=== PATIENT | female | born 1945 | race Caucasian/White ===

== ENCOUNTER 2016-07-31 06:34 | Day surgery (SDC) | payer OTHER, MEDICARE ==
[2016-07-30 15:13] VITALS: BMI 34.4
[2016-07-31] MEDS ORDERED: PROPOFOL 20 ML ONE ×2 (07:57)
[2016-07-31] MEDS ORDERED: LIDOCAINE HCL/PF 2% SDV 5ML VIAL ONE (07:57)
[2016-07-31] MEDS ORDERED: SUCCINYLCHOLINE CHLORIDE 200 MG/10 ML VIAL ONE (07:57)
[2016-07-31 08:39] VITALS: TEMP 98
[2016-07-31 09:24] VITALS: BP 134/52; PULSE 72
--- NOTE | 2016-08-01 10:44 | PATH ---
Surgical Pathology Report Patient Name: JAYA LOCK [facility]. Rec. #: [id number] /Age/Gender: 1945 (Age: 71) / F Account: [id number] Location: ASU-ENDOSCOPY Taken: 07/31/2016 Received: 07/31/2016 Reported: 08/01/2016 Physicians: Jay Jay Armendariz M.D. Specimen(s) Received BX RECTAL POLYP Clinical History History of colon polyp Polyp, diverticulosis Final Diagnosis RECTUM, POLYP, BIOPSY: HYPERPLASTIC POLYP WITH SERRATED ARCHITECTURE. Electronically Signed Rick Roach M.D. Gross Description Received in formalin, labeled "biopsy rectal polyp" is a mendez, irregular portion of soft tissue measuring 0.2 cm in greatest dimension. The specimen is submitted in toto in one cassette. 07/31/201607/31/2016
== END 2016-07-31 09:23 | disposition home or self-care (01) ==
LOC: JASU-ENDO 06:34
PROVIDERS: ATTEND Internal Medicine Gastroenterology
PROC: 0DBP8ZX Excision of Rectum, Via Natural or Artificial Opening Endoscopic, Diagnostic (ICD-10-PCS; principal; 2016-07-31 08:00)
DX: Z12.11 Encounter for screening for malignant neoplasm of colon (principal); Z86.010 Personal history of colon polyps; K62.1 Rectal polyp; K57.30 Diverticulosis of large intestine without perforation or abscess without bleeding
CPT/HCPCS: 88305-TC

== ENCOUNTER 2017-07-04 12:40 | Emergency (ER) | payer OTHER, MEDICARE ==
[2017-07-04 13:02] VITALS: BP 154/64; PULSE 77; TEMP 98; BMI 34.0
[2017-07-04] MEDS ORDERED: IBUPROFEN 600 MG TABLET (FP) PO ONE ×2 (13:13→13:15)
--- NOTE | 2017-07-04 13:14 | PDOC ---
History of Present Illness - General Chief Complaint: Injury Stated Complaint: FALL/ RT ARM PAIN Time Seen by Provider: 07/04/17 12:59 History Source: Patient Exam Limitations: No Limitations - History of Present Illness Initial Comments: 07/04/17 13:18 This is a 72-year-old woman with history of diabetes hands hyperlipidemia presents emergency Department with right shoulder pain status post fall on outstretched hand at approximately 1145 this morning. Patient states she was walking along the sidewalk when there was some uneven concrete which she tripped on and fell forward extending only her right arm and landing on the outstretched hand. Patient reports continued pain in the right shoulder as well as weakness to the right hand. Past History - Past Medical History Allergies/Adverse Reactions: Allergies Allergy/AdvReac Type Severity Reaction Status Date / Time No Known Allergies Allergy Verified 07/04/17 12:53 Home Medications: Ambulatory Orders Calcium Carbonate/Vitamin D3 [Caltrate 600 + D Chewable Tab] 1 each PO DAILY 02/21 Cholecalciferol (Vitamin D3) [Vitamin D3] 1,000 unit PO DAILY 07/12/11 Enalapril Maleate [Vasotec -] 20 mg PO DAILY 07/12/11 Hydrochlorothiazide [Hctz] 12.5 mg PO DAILY 07/12/11 Acitretin [Soriatane] 22.5 mg PO HS 10/05/12 Aspirin [ASA -] 81 mg PO HS 10/05/12 Fenofibrate Nanocrystallized [Tricor] 160 mg PO HS 10/05/12 Lactobacillus Rhamnosus GG [Culturelle] 1 each PO BID 10/05/12 Timolol 0.5% [Timoptic 0.5%] 1 drop OD BID 10/05/12 Glipizide [Glipizide ER] 2.5 mg PO DAILY 07/30/16 Loratadine [Claritin] 10 mg PO DAILY 07/30/16 [place]-3 Fatty Acids [Fish Oil] 300 mg PO DAILY 07/30/16 Ranitidine [Zantac -] 150 mg PO BID 07/30/16 Sitagliptin Phos/Metformin HCl [Janumet 50-1,000 mg Tablet] 1 tab PO BID Vitamin E 400 unit PO DAILY 07/30/16 Atorvastatin Ca [Lipitor] 10 mg PO HS 07/31/16 Oxycodone HCl/Acetaminophen [Percocet 5-325 mg Tablet] 1 tab PO Q6H PRN #20 tablet MDD 4 07/04/17 Anemia: No Asthma: No Cancer: No Cardiac Disorders: No CVA: No COPD: No CHF: No Dementia: No Diabetes: Yes (NIDDM) GI Disorders: Yes (GERD, HIATAL HERNIA, COLON POLYP, DIVERTICULOSIS) Disorders: No HTN: Yes Hypercholesterolemia: Yes Liver Disease: Yes (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) Seizures: No Thyroid Disease: No - Surgical History Abdominal Surgery: Yes (UMBILICAL HERNIA 2X) Appendectomy: Yes Cardiac Surgery: No Cholecystectomy: Yes (LAP) Lung Surgery: No Neurologic Surgery: No Orthopedic Surgery: Yes (LEFT KNEE SURGERY) - Suicide/Smoking/Psychosocial Hx Smoking History: Former smoker Have you smoked in the past 12 months: No If you are a former smoker, when did you quit?: 20 YRS Information on smoking cessation initiated: No Hx Alcohol Use: No Drug/Substance Use Hx: No Substance Use Type: None Hx Substance Use Treatment: No Review of Systems - Review of Systems Able to Perform ROS?: Yes Is the patient limited Tongan proficient: No Constitutional: No: Symptoms Reported HEENTM: No: Symptoms Reported Respiratory: No: Symptoms reported Cardiac (ROS): No: Symptoms Reported ABD/GI: No: Symptoms Reported : No: Symptoms Reported Musculoskeletal: Yes: See HPI Integumentary: No: Symptoms Reported Neurological: No: Symptoms reported Endocrine: No: Symptoms Reported *Physical Exam - Vital Signs Last Vital Signs Temp Pulse Resp BP Pulse Ox 98 F 77 16 154/64 100 07/04/17 12:54 07/04/17 12:54 07/04/17 12:54 07/04/17 12:54 07/04/17 12:54 - Physical Exam General Appearance: Yes: Appropriately Dressed. No: Apparent Distress Neck: positive: Trachea midline, Supple Respiratory/Chest: positive: Lungs Clear, Normal Breath Sounds. negative: Respiratory Distress, Accessory Muscle Use Cardiovascular: positive: Regular Rhythm, Regular Rate. negative: Murmur Gastrointestinal/Abdominal: positive: Normal Bowel Sounds, Soft. negative: Tender Musculoskeletal: positive: Other Extremity: positive: Normal Capillary Refill, Swelling (anterior right shoulder) Integumentary: positive: Normal Color, Dry, Warm Neurologic: positive: Alert, Normal Response ED Treatment Course - RADIOLOGY Radiology Studies Ordered: Category Date Time Status SHOULDER-RIGHT [RAD] Stat Radiology 07/04/17 13:13 Ordered Medical Decision Making - Medical Decision Making 07/04/17 13:22 A/P: 72-year-old woman with history of diabetes hands hyperlipidemia with right shoulder pain status post fall on outstretched hand Swelling and tenderness noted to the anterior right shoulder. Patient tender to the medial humerus 2+ radial and ulnar pulses No pain to palpation of the elbow or wrist 4/5 strength in the right Motrin, x-ray, reassess 07/04/17 13:47 X-rays read by Dr. Moeller: Imaging reveals a comminuted fracture of the right humeral head and neck. There is a slight widening of the joint space most likely due to blood. Correlation recommended. 07/04/17 14:[address] Khushbu Lo's PA, who recommends sling, ice, pain management and follow-up with Dr. Ríos on Friday. Results discussed with patient verbalizes understanding. *DC/Admit/Observation/Transfer Diagnosis at time of Disposition: Comminuted right humeral fracture Qualifiers: Encounter type: initial encounter Fracture type: closed - Discharge Dispostion Disposition: HOME Condition at time of disposition: Stable - Prescriptions Prescriptions: Oxycodone HCl/Acetaminophen [Percocet 5-325 mg Tablet] 1 tab PO Q6H PRN #20 tablet MDD 4 PRN Reason: Severe Pain - Referrals Referrals: Luis Antonio Chavez MD [Primary Care Provider] - Mykel Ríos MD [Staff Physician] - - Patient Instructions Printed Discharge Instructions: How to Use a Sling Additional Instructions: Wear sling 24 hours a day to help relieve pain. Apply ice for 20 minutes at a time and will for a minimum of 20 mass before reapplying. Take Motrin as directed by hair spring winder's instructions for relief of minor pain. Pain is unrelieved by Motrin take Percocet one tablet every 6 hours as needed for pain relief. Make an appointment with Dr. Johnson for evaluation on Friday. Return to emergency department for any numbness or tingling of the fingers, discoloration of her hands, severe pain not controlled by medications, or any other concerns. - Post Discharge Activity
== END 2017-07-04 14:12 | disposition home or self-care (01) ==
LOC: JERFT 12:40
DX: S42.354A Nondisplaced comminuted fracture of shaft of humerus, right arm, initial encounter for closed fracture (principal); W18.39XA Other fall on same level, initial encounter; Y93.89 Activity, other specified; Y92.410 Unspecified street and highway as the place of occurrence of the external cause; E78.5 Hyperlipidemia, unspecified; E11.9 Type 2 diabetes mellitus without complications; I10 Essential (primary) hypertension; K21.9 Gastro-esophageal reflux disease without esophagitis; Z87.891 Personal history of nicotine dependence
CPT/HCPCS: 73030-TC-RT-FY; 99281-25

== ENCOUNTER 2017-07-14 12:17 | Day surgery (SDC) | payer OTHER, MEDICARE ==
[2017-07-11 13:54] VITALS: BMI 34.1
[~2017-07-14 12:17] MED LIST: ceFAZolin SODIUM 1 GM VIAL IVPB ONE
[2017-07-14] MEDS ORDERED: DEXAMETHASONE SOD PHOSPHATE/PF 10 MG/ML SDV ONE (13:41)
[2017-07-14] MEDS ORDERED: ROPIVACAINE HCL 0.5% 30ML VIAL ONE (13:42)
[2017-07-14] MEDS ORDERED: MIDAZOLAM HCL 2 MG/2 ML SINGLE DOSE VIAL ONE ×2 (13:51)
[2017-07-14] MEDS ORDERED: ceFAZolin SODIUM 1 GM VIAL ONE ×2 (14:16→15:02)
[2017-07-14] MEDS ORDERED: ROCURONIUM BROMIDE 50 MG/5 ML VIAL ONE (14:35)
[2017-07-14] MEDS ORDERED: PROPOFOL 20 ML ONE (14:35)
[2017-07-14] MEDS ORDERED: LACTATED RINGERS SOLUTION 1,000 ML IV SCH (14:45)
[2017-07-14] MEDS ORDERED: ONDANSETRON 4 MG/2 ML VIAL IVPUSH PRN (14:45)
[2017-07-14] MEDS ORDERED: ceFAZolin SODIUM 1 GM VIAL IVPB ONE ×2 (15:05→15:27)
[2017-07-14] MEDS ORDERED: DEXAMETHASONE SOD PHOSPHATE 4 MG/1 ML VIAL ONE (15:11)
[2017-07-14] MEDS ORDERED: NEOSTIGMINE METHYLSULFATE 0.5 MG/ML - 10 ML MDV ONE (16:09)
[2017-07-14] MEDS ORDERED: GLYCOPYRROLATE 0.2 MG/1 ML VIAL ONE (16:09)
--- NOTE | 2017-07-14 16:31 | HP ---
Satellite H - Chief Complaint Chief Complaint: right shoulder pain/fx - Past Medical History Allergies/Adverse Reactions: Allergies Allergy/AdvReac Type Severity Reaction Status Date / Time No Known Allergies Allergy Verified 07/11/17 13:52 - Current Medications Current Medications: Home Medications Medication Instructions Recorded Cholecalciferol (Vitamin D3) 1,000 unit PO DAILY 07/12/11 [Vitamin D3] Enalapril Maleate [Vasotec -] 20 mg PO DAILY 07/12/11 Acitretin [Soriatane] 22.5 mg PO HS 10/05/12 Aspirin [ASA -] 81 mg PO HS 10/05/12 Fenofibrate Nanocrystallized 160 mg PO HS 10/05/12 [Tricor] Timolol 0.5% [Timoptic 0.5%] 1 drop OD BID 10/05/12 Glipizide [Glipizide ER] 5 mg PO DAILY 07/30/16 [place]-3 Fatty Acids [Fish Oil] 300 mg PO DAILY 07/30/16 Ranitidine [Zantac -] 150 mg PO BID 07/30/16 Sitagliptin Phos/Metformin HCl 1 tab PO BID 07/30/16 [Janumet 50-1,000 mg Tablet] Vitamin E 400 unit PO DAILY 07/30/16 Atorvastatin Ca [Lipitor] 10 mg PO HS 07/31/16 Hydrochlorothiazide 25 mg PO DAILY 07/14/17 Oxycodone HCl/Acetaminophen 1 - 2 tab PO Q6H #50 tab MDD 8 07/14/17 [Percocet 5-325 mg Tablet -] Satellite Physical Exam - Physical Examination Vital Signs: Vital Signs Period Temp Pulse Resp BP Sys/Buck Pulse Ox Last 24 Hr 98.7 F 93 20 141/82 98 General Appearance: Well Nourished, Well Developed, Alert & Oriented x3 ENT: Clear Lung: Normal air movement Heart: Regular rate & rhythm Extremities: Other (right shoulder- + swelling, + ecchymosis, + ttp, decr ed, nvi xrays show displaced proximal humerus fx) Neurological: Intact, Alert, Oriented Satellite Impression/Plan - Impression/Plan Impression: right displaced proximal humerus Operative Procedure: right shoulder hemiarthroplasty Date to be Performed: 07/14/17
--- NOTE | 2017-07-14 16:32 | OP ---
Operative Note - Note: Operative Date: 07/14/17 ([facility]) Pre-Operative Diagnosis: right proximal humerus fx Operation: right shoulder tad Post-Operative Diagnosis: Same as Pre-op Surgeon: Mykel Ríos [place] Caller: Wally Jessica Anesthesiologist/ENAMEL FINISHER: Lucio Ward Anesthesia: General, Local Specimens Removed: humeral head Estimated Blood Loss (mls): 200 Operative Report Dictated: Yes
[2017-07-14] MEDS: metFORMIN HCL 500 MG TABLET (FP) PO SCH (21:18)
[2017-07-14] MEDS: RANITIDINE HCL 150 MG TABLET (FP) PO SCH (21:18)
[2017-07-14] MEDS: INSULIN SLIDING SCALE (NOVOLOG) 1 VIAL SQ SCH (21:26)
--- NOTE | 2017-07-14 21:42 | OP ---
DATE OF OPERATION: 07/14/2017 PREOPERATIVE DIAGNOSIS: Four-part right proximal humerus fracture. POSTOPERATIVE DIAGNOSIS: Four-part right proximal humerus fracture. PROCEDURE: Right shoulder hemiarthroplasty. SURGICAL ATTENDING: Mykel Ríos MD ELECTROMECHANICAL INSPECTOR: ABELINO Talbert ANESTHESIA: Regional and general. CLOSURE: A [place] fracture proximal humeral replacement hemiarthroplasty system with a 9 body, a, I believer, 46-mm head, and a FiberTape suture for tuberosities, 0 Vicryl for fascia, 2-0 subcutaneous, and 3-0 Monocryl subcuticular with skin glue for skin. ESTIMATED BLOOD LOSS: Approximately 100 mL. COMPLICATIONS: None. CONDITION: Recovery room in stable condition. DESCRIPTION OF OPERATIVE PROCEDURE: Patient taken to the operating room on July 14, 2017. Regional and general anesthesia was administered by the anesthesiologist. IV Kefzol was administered prophylactically prior to the case. Patient was placed in the beach chair position with all prominences well padded. Right shoulder area was prepped and draped in the usual sterile fashion. A curved longitudinal incision from the AC joint along the coracoid, curving towards the deltoid insertion was incised. Hemostasis achieved with Bovie cautery. Sharp dissection was carried down to the level of the fascia with suspension flaps circumferentially to perform the procedure. The deltopectoral interval was identified and was developed. The vein was identified, and it was retracted medially. Any perforators were cauterized. Retractors were placed here, exposing the fracture. The humeral head was freed up and was delivered out of the wound. It was measured for thickness and for size. Multiple traction stitches were placed both in the subscapularis and in the supraspinatus/infraspinatus regions. The tuberosity bone was smoothened out. The cancellous bone was saved for latera bone grafting. The proximal femur was broached until a 9 achieved good fit. Drill holes were placed in the shaft and passage of SutureTape sutures for later tuberosity closure. The stem was placed with it left proud 3 levels and was then tightened intramedullary in order to ascertain height. The trial head was applied. Shoulder was reduced. The tuberosities were then pulled around and found to fit appropriately beneath the articular surface and had good stability and good clearance on the subacromial space. The real prostheses were then cemented in using antibiotic cement with 30 degrees of retroversion placed in the stem. When the cement was hardened, all excess cement was removed. The shoulder was reduced. The tuberosities were then pulled around the prosthesis. Sutures were passed through each tuberosity and through the holes in the prosthesis to reduce the tuberosities to the prosthesis. Also, sutures were passed from one tuberosity to the other. Also, sutures were passed and tied from the shaft up to both the anterior and posterior tuberosities; so, we have a construct of shaft tuberosities, tuberosities to tuberosities, and tuberosities to the components. The region underneath the component was filled with the bone graft fragments. Shoulder was taken through a range of motion, found to have good stability and good clearance and good height. Shoulder was irrigated with copious amounts of irrigation. The deltopectoral interval was closed with 0 Vicryl running suture, a 2-0 for subcutaneous, 3-0 Monocryl subcuticular with skin glue for skin. A shoulder immobilizer was applied. Patient awakened from anesthesia and transferred to Recovery in stable condition. No complications. Estimated blood loss: Approximately 100 mL. Luis DEMARCO/[id number]
[2017-07-14] MEDS ORDERED: ATORVASTATIN CA 10 MG TABLET (FP) PO SCH (22:00)
[2017-07-14] MEDS ORDERED: FENOFIBRIC ACID 135 MG CAP PO SCH (22:00)
[2017-07-14] MEDS ORDERED: ASPIRIN 81 MG CHEWABLE TABLETS PO SCH (22:00)
[2017-07-14] MEDS ORDERED: PATIENT'S OWN MEDICATION (NON-FORMULARY) (Sitagliptin Phos/Metformin Hcl [Janumet 50-1,000 PO SCH (22:00)
[2017-07-14] MEDS: TIMOLOL 0.5% OPHTHALMIC SOL 5 ML BOTTLE OD SCH (22:37)
[2017-07-14] MEDS: sitaGLIPtin PHOSPHATE 50 MG TABLET PO SCH (22:38)
[2017-07-15] MEDS ORDERED: PT OWN MED DRAWER 7, Y5N ONE ×2 (04:42→09:25)
[2017-07-15] MEDS: metFORMIN HCL 500 MG TABLET (FP) PO SCH (06:14)
[2017-07-15] MEDS: sitaGLIPtin PHOSPHATE 50 MG TABLET PO SCH (06:14)
[2017-07-15] MEDS: INSULIN SLIDING SCALE (NOVOLOG) 1 VIAL SQ SCH (06:15)
[2017-07-15] MEDS ORDERED: glipiZIDE-XL 5 MG TAB.ER.24 PO SCH (07:00)
[2017-07-15 08:51] VITALS: BP 149/64; PULSE 83; TEMP 98.5
[2017-07-15] MEDS: TIMOLOL 0.5% OPHTHALMIC SOL 5 ML BOTTLE OD SCH (09:37)
[2017-07-15] MEDS: RANITIDINE HCL 150 MG TABLET (FP) PO SCH (09:38)
[2017-07-15] MEDS ORDERED: ENALAPRIL MALEATE 10 MG TABLET (FP) PO SCH (10:00)
[2017-07-15] MEDS ORDERED: HYDROCHLOROTHIAZIDE 25 MG TABLET (FP) PO SCH (10:00)
--- NOTE | 2017-07-16 17:09 | PATH ---
Surgical Pathology Report Patient Name: JAYA LOCK [facility]. Rec. #: [id number] /Age/Gender: 1945 (Age: 72) / F Account: [id number] Location: AMBULATORY SURG Taken: 07/14/2017 Received: 07/15/2017 Reported: 07/16/2017 Physicians: Mykel Ríos M.D. Specimen(s) Received RIGHT HUMERAL HEAD Clinical History Fracture right shoulder Final Diagnosis BONE, HUMERAL HEAD, RIGHT, HEMIARTHROPLASTY: BONE WITH INTERSTITIAL HEMORRHAGE CONSISTENT WITH FRACTURE. Electronically Signed Deyanira Sexton M.D. Gross Description Received in formalin labeled "right humeral head," is a 4.3 x 3.8 x 1.5 cm focally hemorrhagic portion of bone, consistent with a humeral head. The articular surface is mendez-yellow and focally granular. No areas of eburnation are identified. The underlying trabecular bone is yellow, hard and focally hemorrhagic. Sales Program Coordinator sections are submitted in one cassette, following decalcification. 07/15/2017 [facility]07/15/2017
== END 2017-07-15 11:07 | disposition home or self-care (01) ==
LOC: JASUSAT 12:17 → JASU-SURG 12:17 → J6S 18:40 → JASUSAT 07-15 11:07
PROVIDERS: ATTEND Orthopaedic Surgery
PROC: 0RRJ0J6 Replacement of Right Shoulder Joint with Synthetic Substitute, Humeral Surface, Open Approach (ICD-10-PCS; principal; 2017-07-14 14:30)
DX: S42.291A Other displaced fracture of upper end of right humerus, initial encounter for closed fracture (principal); X58.XXXA Exposure to other specified factors, initial encounter; Y93.9 Activity, unspecified; Y92.9 Unspecified place or not applicable
CPT/HCPCS: 36415; 73030-TC-RT-FY; 82947; 82962; 88307-TC; 88311-TC; 94760; 97116-GP; 97161-GP

== ENCOUNTER 2018-10-11 12:11 | Emergency (ER) | payer OTHER, MEDICARE | END 2018-10-11 14:54 | disposition home or self-care (01) | LOC: JER 12:11 ==

== ENCOUNTER 2018-10-14 05:27 | Inpatient (IN) | payer OTHER, MEDICARE ==
[2018-10-13 13:31] VITALS: BMI 34.0
[2018-10-14] MEDS ORDERED: ONDANSETRON 4 MG/2 ML VIAL IVPUSH PRN (08:40)
[2018-10-14] MEDS ORDERED: ROPIVACAINE HCL 0.5% 30ML VIAL ONE (10:41)
[2018-10-14] MEDS ORDERED: DEXAMETHASONE SOD PHOSPHATE/PF 10 MG/ML SDV ONE (10:41)
[2018-10-14] MEDS ORDERED: MIDAZOLAM HCL 2 MG/2 ML SINGLE DOSE VIAL ONE ×2 (10:42)
--- NOTE | 2018-10-14 11:01 | HP ---
Satellite [facility] - Chief Complaint Chief Complaint: left shoulder fx - Past Medical History Allergies/Adverse Reactions: Allergies Allergy/AdvReac Type Severity Reaction Status Date / Time No Known Drug Allergies Allergy Verified 10/14/18 10:03 ENVIRONMENTAL Allergy Mild Uncoded 10/14/18 10:03 - Current Medications Current Medications: Home Medications Medication Instructions Recorded Cholecalciferol (Vitamin D3) 1,000 unit PO DAILY 07/12/11 [Vitamin D3] Enalapril Maleate [Vasotec -] 20 mg PO DAILY 07/12/11 Aspirin [ASA -] 81 mg PO HS 10/05/12 Fenofibrate Nanocrystallized 160 mg PO HS 10/05/12 [Tricor] Timolol 0.5% [Timoptic 0.5%] 1 drop OD BID 10/05/12 Glipizide [Glipizide ER] 5 mg PO DAILY 07/30/16 [place]-3 Fatty Acids [Fish Oil] 300 mg PO DAILY 07/30/16 Ranitidine [Zantac -] 150 mg PO BID 07/30/16 Sitagliptin Phos/Metformin HCl 1 tab PO BID 07/30/16 [Janumet 50-1,000 mg Tablet] Vitamin E 400 unit PO DAILY 07/30/16 Hydrochlorothiazide 25 mg PO DAILY 07/14/17 Acetaminophen [Tylenol -] 1,000 mg PO Q6H #30 tablet 10/11/18 Atorvastatin Ca [Lipitor] 10 mg PO HS 10/14/18 Satellite Physical Exam - Physical Examination Vital Signs: Vital Signs Period Temp Pulse Resp BP Sys/Buck Pulse Ox Last 24 Hr 98.2 F 89 18 139/83 98 General Appearance: Well Nourished, Well Developed, Alert & Oriented x3 ENT: Clear Lung: Normal air movement Heart: Regular rate & rhythm Extremities: Other (left shoulder- + swelling, + ttp, decr rom , nvi, xrays show displaced 4 part proximal humerus fx) Neurological: Intact, Alert, Oriented Satellite Impression/Plan - Impression/Plan Impression: left displaced proximal humerus fx Operative Procedure: left reverse TSA Date to be Performed: 10/14/18
[2018-10-14] MEDS ORDERED: PROPOFOL 20 ML ONE (11:19)
[2018-10-14] MEDS ORDERED: ROCURONIUM BROMIDE 50 MG/5 ML SYRINGE ONE (11:19)
[2018-10-14] MEDS ORDERED: ceFAZolin SODIUM 1 GM VIAL IVPB ONE (11:25)
[2018-10-14] MEDS ORDERED: ceFAZolin SODIUM 1 GM VIAL ONE (11:35)
[2018-10-14] MEDS ORDERED: DESFLURANE GAS 240 ML BOTTLE IH ONE (13:59)
--- NOTE | 2018-10-14 14:39 | OP ---
Operative Note - Note: Operative Date: 10/14/18 ([facility]) Pre-Operative Diagnosis: left proximal humerus fx Operation: left reverse TSA, RCR Post-Operative Diagnosis: Same as Pre-op Surgeon: Mykel Ríos Dampener Operator: Uche Lipscomb) Anesthesiologist/AIRLINE PILOT/FIRST OFFICER: Rhonda Milan Anesthesia: General, Local Specimens Removed: humeral head Estimated Blood Loss (mls): 250 Operative Report Dictated: Yes
[2018-10-14] MEDS: INSULIN SLIDING SCALE (NOVOLOG) 1 VIAL SQ SCH ×2 (17:03→21:10)
[2018-10-14] MEDS: LACTATED RINGERS SOLUTION 1,000 ML IV SCH (17:04)
[2018-10-14] MEDS: CEFAZOLIN 2 GM/D5W 2 GM/50 ML ML IVPB SCH (18:08)
--- NOTE | 2018-10-14 19:09 | OP ---
DATE OF OPERATION: 10/14/2018 PREOPERATIVE DIAGNOSIS: Left four-part left proximal humerus fracture. POSTOPERATIVE DIAGNOSIS: Left four-part left proximal humerus fracture. PROCEDURE: Left reverse total shoulder replacement and open reduction, internal fixation of the greater lesser tuberosities and open rotator cuff repair. SURGEON: Rocky Knight M.D. DUMP MOTORMAN: Mykel Ríos M.D., Wally Jessica PRadha DRAINS: None. COMPLICATIONS: None. SPECIMEN: Cancellous bone. BLOOD LOSS: 150 mL. BLOOD GIVEN: None. FLUID REPLACEMENT: 1500 mL. INDICATION: This patient is a 73-year-old female with preoperative diagnosis of complete displaced 4-part left proximal humerus fracture. After understanding the potential risks, complications, alternatives, benefits to surgery versus nonsurgical treatment, the patient elected to undergo this procedure. DESCRIPTION OF PROCEDURE; The patient was brought to the operating room, peripheral IV placed, IV sedation, given, 2 g of IV Ancef was given. Left interscalene block was performed. LMA anesthesia was induced. She was placed in the beach chair position with ample padding throughout. The left upper extremity is prepped and draped in sterile fashion. The bony landmarks were marked out with marking pen. Deltopectoral approach, the incision was made with a number 15 scalpel blade. Subcutaneous hemostasis was achieved with a Bovie cautery. Dissection was done down to the deltoid. The raphe was found. The cephalic vein retracted in a medial direction. Additional blunt dissection done through the deltopectoral interval, down to the subscapularis and the anterior capsule on the left shoulder. The Jacob retractor was placed. Next an anterior straight longitudinal anterior capsulotomy was made with Bovie cautery. Hematoma was evacuated. Next, 6 Fiberwire sutures were placed: 3 into the greater, 3 into the lesser tuberosity for later rotator cuff repair and greater tuberosity/lesser tuberosity ORIF. Several small bony fragments were removed, fragments of the humeral head with articular cartilage were removed. This exposed the glenoid. The area was copiously irrigated and washed out. Some small bleeders cauterized. The top of the humerus was cleaned up. Next, we used the [employer] [place] reverse total shoulder replacement system to put in a glenoid/glenosphere in the standard fashion. First we cut out the soft labrum, then used the central guidewire in a bicortical fashion, measured, pretapped, and then put in a standard 28-mm glenosphere baseplate with the central screw holding it in place. Came together quite nicely. This was done after reaming, getting an inferior "smile" of exposed bleeding cancellous bone. Next, I put in 4 screws for additional baseplate fixation from 16 to 30 mm in length. It all came together quite nicely, and we got excellent fixation. baseplate, a 36-mm glenosphere was put on with a mallet in a Dodge taper fashion. I tried to pull it off; it was quite stable. I could not. Next, our attention turned to the humerus. We used the canal finder, sequential hand reamers up to a size 10, and then put in a trial 8 with the expandable distal aspect, expanded it keeping the top surface of the prosthesis 4 cm above the insertion of the pectoralis into the humerus. It seemed to come together quite nicely. I then trialed with a standard 4-mm baseplate with a 4-mm poly. It was quite stable in every plane. There was excellent range of motion. The shoulder was then dislocated. The trial prosthesis removed. I put in a plug of cancellous bone to the appropriate depth as a cement restricter, and put in 2 bags of Simplex cement with the pressurization gun and put in an actual [place] reverse total shoulder replacement fracture stem, 8 mm. It was held at the appropriate 4-cm position using the version safia at 30 degrees retroversion until the cement dried. Once the cement dried, the broach handle was removed, some excess cement removed with the small osteotome. The area was copiously irrigated and washed out. Overall it looked quite good. I put in a trial 4/4 humeral cup, reduced it, and it was quite stable in all planes, and therefore I put in the actual 4/4 mm poly and tapped it into place with a Dodge taper. I reduced it. It was quite stable in all planes. It all looked quite good. The area was copiously irrigated and washed out. I next used Fiberwire to sew the suture the greater to the lesser tuberosity and then brought it over the prosthesis and while doing the more inferior rotator cuff repair and then capsular repair, it completely covered the prosthesis and was quite stable in all planes. She would afford much more stability and function having done this repair. After the greater, lesser tuberosity ORIF and open rotator cuff repair and capsular repair, the area was irrigated and washed out. I reapproximated the deltoid with 0 Vicryl sutures, 2-0 Vicryl was used in the deep dermal layer and a final skin reapproximation was done with a running subcuticular 3-0 V-Loc suture. was then applied. The area was washed and dried, covered with Aquacel dressing. Total operative time was about 2.5 hours. Total blood loss was about 200 mL. She was put into a sling, extubated. She was stable throughout the case, and was brought to the regular recovery room in stable condition. The plan is for her to spend tonight in the hospital for observation and cardiovascular monitoring. We will repeat a hemoglobin and hematocrit as well. ROCKY KNIGHT M.D. [id number]
[2018-10-14] MEDS: oxyCODONE HCL 5 MG TABLET PO PRN (20:31)
[2018-10-14] MEDS: RANITIDINE HCL 150 MG TABLET (FP) PO SCH (21:10)
[2018-10-14] MEDS: TIMOLOL 0.5% OPHTHALMIC SOL 5 ML BOTTLE OD SCH (21:46)
[2018-10-14] MEDS ORDERED: ASPIRIN 81 MG CHEWABLE TABLETS PO SCH (22:00)
[2018-10-14] MEDS ORDERED: PATIENT'S OWN MEDICATION (NON-FORMULARY) (Sitagliptin Phos/Metformin Hcl [Janumet 50-1,000 PO SCH ×3 (22:00)
[2018-10-14] MEDS ORDERED: FENOFIBRIC ACID 135 MG CAP PO SCH ×2 (22:00)
[2018-10-14] MEDS ORDERED: ATORVASTATIN CA 10 MG TABLET (FP) PO SCH (22:00)
[2018-10-15] MEDS: oxyCODONE HCL 5 MG TABLET PO PRN (01:59)
[2018-10-15] MEDS: CEFAZOLIN 2 GM/D5W 2 GM/50 ML ML IVPB SCH (02:47)
[2018-10-15] MEDS: LACTATED RINGERS SOLUTION 1,000 ML IV SCH (05:50)
[2018-10-15 05:58] VITALS: BP 144/55; PULSE 80; TEMP 98.5
[2018-10-15] MEDS: INSULIN SLIDING SCALE (NOVOLOG) 1 VIAL SQ SCH (06:41)
[2018-10-15] MEDS ORDERED: INSULIN (NOVOLOG) ASPART 100 UNITS/ML 10ML VIAL ONE (06:48)
[2018-10-15] MEDS ORDERED: PT OWN MED DRAWER 7, Y5N ONE (06:49)
[2018-10-15] MEDS ORDERED: glipiZIDE-XL 5 MG TAB.ER.24 PO SCH (07:00)
--- NOTE | 2018-10-15 09:23 | PN ---
Progress Note (short form) - Note Progress Note: Ortho Pt seen and examined s/p left reverse TSA pod #1 Selected Entries 10/15/18 05:55 Temperature 98.5 F Pulse Rate 80 Respiratory 18 Rate Blood Pressure 144/55 L dressing c/d/i, good rom of elbow, wrist and hand nvi a/p PT pain control d/c home today f/u in 1 week
--- NOTE | 2018-10-15 09:24 | DS ---
Physical Examination Vital Signs: Vital Signs Temperature 98.5 F 10/15/18 05:55 Pulse Rate 80 10/15/18 05:55 Respiratory Rate 18 10/15/18 05:55 Blood Pressure 144/55 L 10/15/18 05:55 O2 Sat by Pulse Oximetry (%) 96 10/14/18 21:00 Discharge Summary Reason For Visit: OSTEOARTHRITIS LEFT SHOULDER Procedures: Principal: left reverse TSA Hospital Course: admitted for elective left reverse TSA, post-op course as per protocol, stable for d/c Condition: Good - Instructions Diet, Activity, Other Instructions: Post -op Instruction Sheet - Shoulder Surgery - Sling : You have been placed in a sling. As long as you are wearing this, your shoulder is well protected. You may come out of the sling to dress, or do exercises as directed. You may bend and straighten the elbow, and move your wrist and fingers. Please sleep with the sling on. You may find it more comfortable to sleep with a small pillow behind your elbow, or in a recliner. To wash your armpit, you may lean slightly forward and let your arm dangle slightly away from your side and wash with a washcloth. - Use an ice bag/pack on the shoulder for 15 minutes every 2 hours. - Pain medication was sent to your Pharmacy. - Keep your dressing clean and dry. Please call the office to make an appointment for 1 week after surgery. Your dressing will be removed at that time. - No Lifting. - Starting 1-2 days after surgery, you may take your arm out of the sling 3 times a day to bend and straighten your elbow and wrist to prevent stiffness. If only an arthroscopy was performed and NO repairs, you may move your shoulder as tolerated. If a rotator cuff/labral repair was performed, DO NOT move your shoulder until instructed by surgeon. - Please call the office at [phone] if there are any questions or concerns. Referrals: Mykel Ríos MD [Staff Physician] - - Home Medications Comprehensive Discharge Medication List: Ambulatory Orders Cholecalciferol (Vitamin D3) [Vitamin D3] 1,000 unit PO DAILY 07/12/11 Enalapril Maleate [Vasotec -] 20 mg PO DAILY 07/12/11 Aspirin [ASA -] 81 mg PO HS 10/05/12 Fenofibrate Nanocrystallized [Tricor] 160 mg PO HS 10/05/12 Timolol 0.5% [Timoptic 0.5%] 1 drop OD BID 10/05/12 Glipizide [Glipizide ER] 5 mg PO DAILY 07/30/16 [place]-3 Fatty Acids [Fish Oil] 300 mg PO DAILY 07/30/16 Ranitidine [Zantac -] 150 mg PO BID 07/30/16 Sitagliptin Phos/Metformin HCl [Janumet 50-1,000 mg Tablet] 1 tab PO BID Vitamin E 400 unit PO DAILY 07/30/16 Hydrochlorothiazide 25 mg PO DAILY 07/14/17 Acetaminophen [Tylenol -] 1,000 mg PO Q6H #30 tablet 10/11/18 Atorvastatin Ca [Lipitor] 10 mg PO HS 10/14/18
[2018-10-15] MEDS: RANITIDINE HCL 150 MG TABLET (FP) PO SCH (09:47)
[2018-10-15] MEDS: TIMOLOL 0.5% OPHTHALMIC SOL 5 ML BOTTLE OD SCH (09:54)
[2018-10-15] MEDS ORDERED: ENALAPRIL MALEATE 10 MG TABLET (FP) PO SCH (10:00)
[2018-10-15] MEDS ORDERED: HYDROCHLOROTHIAZIDE 25 MG TABLET (FP) PO SCH (10:00)
[2018-10-15] MEDS ORDERED: PATIENT'S OWN MEDICATION (NON-FORMULARY) (Sitagliptin Phos/Metformin Hcl [Janumet 50-1,000 PO SCH ×2 (11:00→11:45)
--- NOTE | 2018-10-16 18:11 | PATH ---
Surgical Pathology Report Patient Name: JAYA LOCK Med. Rec. #: [id number] /Age/Gender: 1945 (Age: 73) / F Account: <[id number]> Location: AMBULATORY SURG Taken: 10/14/2018 Received: 10/15/2018 Reported: 10/16/2018 Physicians: Luis Crabtree M.D. Specimen(s) Received LEFT HUMERAL HEAD Clinical History Osteoarthritis Final Diagnosis BONE, HUMERAL HEAD, LEFT, TOTAL REVERSE SHOULDER REPLACEMENT: BONE WITH DEGENERATIVE JOINT DISEASE AND REACTIVE CHANGES. Electronically Signed Deyanira Sexton M.D. Gross Description Received in formalin labeled "left humeral head" is a portion of humeral head measuring 4 x 4 x 0.2 cm. Margin of resection is irregular and focally hemorrhagic. Bone surface is predominantly smooth with focal granular areas. Underlying bone is yellow and hard. Computer Forwarding System Markup Clerk sections are submitted after decalcification in 1 cassette. MLAyeZ/10/15/2018 castro/10/15/2018
== END 2018-10-15 10:47 | disposition home or self-care (01) | DRG 483 ==
LOC: J6S 05:27 → JASUSAT 05:27 → JSAMEDAYSX 05:27 → UNDOADMIN 05:27 → EDSTATUS 10:00 → J6S 16:18 → JSAMEDAYSX 16:18 → JASUSAT 18:08 → J6S 18:08 → JASUSAT 10-15 10:47 → J6S 10-15 10:47
PROVIDERS: ADMIT Orthopaedic Surgery; ATTEND Orthopaedic Surgery
PROC: 0PSD04Z Reposition Left Humeral Head with Internal Fixation Device, Open Approach (ICD-10-PCS; 2018-10-14)
PROC: 0LQ20ZZ Repair Left Shoulder Tendon, Open Approach (ICD-10-PCS; 2018-10-14)
PROC: 0RQK0ZZ Repair Left Shoulder Joint, Open Approach (ICD-10-PCS; 2018-10-14)
PROC: 0RRK00Z Replacement of Left Shoulder Joint with Reverse Ball and Socket Synthetic Substitute, Open Approach (ICD-10-PCS; principal; 2018-10-14 12:00)
DX: S42.262A Displaced fracture of lesser tuberosity of left humerus, initial encounter for closed fracture (principal); Z96.612 Presence of left artificial shoulder joint; M19.012 Primary osteoarthritis, left shoulder; X58.XXXA Exposure to other specified factors, initial encounter; Y93.89 Activity, other specified; Y92.89 Other specified places as the place of occurrence of the external cause; E11.9 Type 2 diabetes mellitus without complications; I10 Essential (primary) hypertension; M85.80 Other specified disorders of bone density and structure, unspecified site; E78.5 Hyperlipidemia, unspecified; Z87.891 Personal history of nicotine dependence
CPT/HCPCS: 36415; 70450-TC; 70486-TC; 73030-TC-LT-FY; 73070-TC-LT-FY; 80053; 81003; 82962; 85025; 85610; 85730; 94010; 94760; 99282-25

== ENCOUNTER 2019-01-22 07:28 | Day surgery (SDC) | payer OTHER, MEDICARE ==
[2019-01-22 08:26] VITALS: BMI 31.4
[2019-01-22 09:46] VITALS: TEMP 98.1
[2019-01-22 10:46] VITALS: BP 140/55; PULSE 70
[2019-01-22 11:05] LABS: BASO % 1.2 % (0-2.0); EOS % 2.6 % (0-4.5); HEMOGLOBIN 11.6 GM/dL (10.7-15.3); LYMPH % 28.6 % (8-40); MCH 26.4 pg (25.7-33.7); MCHC 34.1 g/dl (32.0-36.0); MEAN CELL VOLUME 77.5 fl (80-96); MEAN PLT VOLUME 8.7 fl (7.5-11.1); MONO % 11.2 % (3.8-10.2); NEUT % 56.4 % (42.8-82.8); PLATELET COUNT 82 K/MM3 (134-434); RBC 4.39 M/mm3 (3.60-5.2); RETICULOCYTES 1.94 % (0.5-1.5); WHITE BLOOD COUNT 3.7 K/mm3 (4.0-10.0)
[2019-01-22 11:45] LABS: ALBUMIN 3.5 g/dl (3.4-5.0); BILIRUBIN,TOTAL 0.9 mg/dL (0.2-1); BLOOD UREA NITROGEN 10.7 mg/dL (7-18); CALCIUM 9.4 mg/dL (8.5-10.1); CREATININE 0.7 mg/dL (0.55-1.3); POTASSIUM 3.6 mmol/L (3.5-5.1); TOT PROT 6.3 g/dl (6.4-8.2)
--- NOTE | 2019-01-25 18:17 | PATH ---
Surgical Pathology Report Patient Name: JAYA LOCK [facility]. Rec. #: [id number] /Age/Gender: 1945 (Age: 73) / F Account: [id number] Location: U-ENDOSCOPY Taken: 01/22/2019 Received: 01/22/2019 Reported: 01/25/2019 Physicians: Jay Jay Armendariz M.D. Specimen(s) Received A: DUODENUM, SECOND PORTION AND DUODENAL BULB B: ULCERATED SUBMUCOSAL ANTRAL POLYP C: ANTRUM Clinical History Weight loss, anemia Postoperative diagnosis: Hiatal hernia, antral submucosal ulcerated polyps Final Diagnosis A. DUODENUM, SECOND PORTION AND DUODENAL BULB, BIOPSY: DUODENAL MUCOSA WITHOUT SIGNIFICANT PATHOLOGIC FINDINGS. B. ULCERATED SUBMUCOSAL ANTRAL POLYP, BIOPSY: POLYPOID FRAGMENTS OF ANTRAL MUCOSA WITH MILD CHRONIC GASTRITIS AND FOCAL INTESTINAL METAPLASIA. NO DYSPLASIA IDENTIFIED. IMMUNOHISTOCHEMICAL STAIN FOR H. PYLORI IS NEGATIVE. C. STOMACH, ANTRUM, BIOPSY: GASTRIC ANTRAL MUCOSA WITH MILD CHRONIC GASTRITIS. IMMUNOHISTOCHEMICAL STAIN FOR H. PYLORI IS NEGATIVE. Electronically Signed Deyanira Sexton M.D. Gross Description A. Received in formalin, labeled "biopsy second portion of duodenum and duodenal bulb" are 3 mendez, irregular portions of soft tissue ranging from 0.3-0.4 cm. in greatest dimension. The specimens are submitted in toto in one cassette. B. Received in formalin, labeled "biopsy ulcerated submucosal antral polyp" are 8 mendez, irregular portions of soft tissue ranging from 0.1-0.3 cm. in greatest dimension. The specimens are submitted in toto in one cassette. C. Received in formalin, labeled "biopsy antrum" are 2 mendez, irregular portions of soft tissue measuring 0.4 and 0.5 cm. in greatest dimension. The specimens are submitted in toto in one cassette. 01/22/201901/22/2019
== END 2019-01-22 10:51 | disposition home or self-care (01) ==
LOC: JASU-ENDO 07:28
PROVIDERS: ATTEND Internal Medicine Gastroenterology
PROC: 0DB68ZX Excision of Stomach, Via Natural or Artificial Opening Endoscopic, Diagnostic (ICD-10-PCS; 2019-01-22)
PROC: 0DB98ZX Excision of Duodenum, Via Natural or Artificial Opening Endoscopic, Diagnostic (ICD-10-PCS; principal; 2019-01-22 09:15)
DX: K29.50 Unspecified chronic gastritis without bleeding (principal); K31.7 Polyp of stomach and duodenum; K44.9 Diaphragmatic hernia without obstruction or gangrene; R63.4 Abnormal weight loss; R63.0 Anorexia; I10 Essential (primary) hypertension; E11.9 Type 2 diabetes mellitus without complications; E78.00 Pure hypercholesterolemia, unspecified; H40.9 Unspecified glaucoma; K74.60 Unspecified cirrhosis of liver; K21.9 Gastro-esophageal reflux disease without esophagitis
CPT/HCPCS: 36415; 80053; 82378; 82728; 82941; 82962; 83540; 83550; 85025; 85044; 86140; 88305-TC; 88342-TC

== ENCOUNTER 2019-10-06 08:40 | Emergency (ER) | payer OTHER, MEDICARE ==
[2019-10-06 08:47] VITALS: BP 162/58; PULSE 88; TEMP 98; BMI 32.5
--- NOTE | 2019-10-06 09:37 | PDOC ---
History of Present Illness - General Chief Complaint: Injury Stated Complaint: SLIP AND FALL Time Seen by Provider: 10/06/19 08:52 History Source: Patient Exam Limitations: No Limitations - History of Present Illness Initial Comments: 10/06/19 09:33 Patient states was placing bags in her car when she fell forward landing on her right wrist bilateral knees and then striking her face onto the ground. Patient states no LOC and was able to get up immediately but decided come to the ER for evaluation when she had difficulty moving her wrist and noted her face. Patient states is on baby aspirin and currently denies any headache, nausea, or visual changes. Patient also denies any other complaints at this time Occurred: reports: just prior to arrival Severity: reports: mild Pain Location: reports: face, head, upper extremity Method of Injury: Yes: fall Modifying Factors: improves with: None Loss of Consciousness: no loss of consciousness Associated Symptoms (Fall): denies symptoms Past History - Travel History Traveled outside of the country in the last 30 days: No Close contact w/someone who was outside of country & ill: No - Medical History Allergies/Adverse Reactions: Allergies Allergy/AdvReac Type Severity Reaction Status Date / Time No Known Drug Allergies Allergy Verified 10/06/19 08:47 ENVIRONMENTAL Allergy Mild Uncoded 10/06/19 08:47 Home Medications: Ambulatory Orders Cholecalciferol (Vitamin D3) [Vitamin D3] 1,000 unit PO DAILY 07/12/11 Enalapril Maleate [Vasotec -] 20 mg PO DAILY 07/12/11 Fenofibrate Nanocrystallized [Tricor] 160 mg PO HS 10/05/12 Timolol 0.5% [Timoptic 0.5%] 1 drop OU BID 10/05/12 [place]-3 Fatty Acids [Fish Oil] 2 500s PO BID 07/30/16 Sitagliptin Phos/Metformin HCl [Janumet 50-1,000 mg Tablet] 1 tab PO BID 07/30/16 Vitamin E 400 unit PO DAILY 07/30/16 Hydrochlorothiazide 25 mg PO DAILY 07/14/17 Atorvastatin Ca [Lipitor] 10 mg PO HS 10/14/18 Aspirin [Francisco Chewable Aspirin] 81 mg PO DAILY 01/22/19 Srikanth/D3/Mag11/Zinc/Torts Law Professor/[place]/Bor [Caltrate 600+D Plus Tablet] 1 each PO BID 01/22/19 Lactobacillus Rhamnosus GG [Culturelle] 1 each PO DAILY 01/22/19 Loratadine [Claritin -] 10 mg PO DAILY 01/22/19 Pantoprazole Sodium 40 mg PO DAILY #90 tablet. 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) Seizures: No Thyroid Disease: No - Surgical History Abdominal Surgery: Yes (REPAIR UMBILICAL HERNIA) Appendectomy: Yes (EGD,COLONOSCOPY WITH HYPERPLASIA POLYPS,DIVERTICULOSIS) Cardiac Surgery: No Cholecystectomy: Yes (LAP) Lung Surgery: No Neurologic Surgery: No Orthopedic Surgery: Yes (LEFT KNEE SURGERY,BILATERAL SHOULDER SURGERY) - Psycho-Social/Smoking History Patient Lives Alone: No Lives with/in: spouse/SO Smoking History: Never smoked Have you smoked in the past 12 months: No If you are a former smoker, when did you quit?: 10 YEARS - Substance Abuse Hx (Audit-C & DAST Scrn) How often the patient has a drink containing alcohol: Never Score: In Men: 4 or > Positive; In Women: 3 or > Positive: 0 Screen Result (Pos requires Nsg. Audit-10AR): Negative Review of Systems - Review of Systems Able to Perform ROS?: Yes Constitutional: No: Symptoms Reported ABD/GI: No: Symptoms Reported Musculoskeletal: Yes: Joint Pain Integumentary: Yes: Erythema, Lumps Neurological: No: Headache, Weakness Endocrine: No: Symptoms Reported Hematologic/Lymphatic: No: Symptoms Reported *Physical Exam - Vital Signs Last Vital Signs Temp Pulse Resp BP Pulse Ox 98 F 88 18 162/58 L 99 10/06/19 08:42 10/06/19 08:42 10/06/19 08:42 10/06/19 08:42 10/06/19 08:42 - Physical Exam General Appearance: Yes: Nourished, Appropriately Dressed. No: Apparent Distress HEENT: positive: EOMI, ARNALDO, TMs Normal. negative: Pharynx Normal (noted abrasion, ecchymosis and edema to lower lip, small superficial macerated area to center), Pale Conjunctivae Neck: positive: Supple. negative: Tender, Decreased range of motion Respiratory/Chest: positive: Lungs Clear, Normal Breath Sounds. negative: Chest Tender, Respiratory Distress, Accessory Muscle Use Cardiovascular: positive: Regular Rhythm, Regular Rate. negative: Murmur Gastrointestinal/Abdominal: positive: Soft. negative: Tenderness Extremity: positive: Normal Inspection, Normal Range of Motion. negative: Tender (rt distal radius) Integumentary: positive: Normal Color, Warm, Moist. negative: Ecchymosis (with abrasion to nasal bridge, forehead, and rt palm) Neurologic: positive: Motor Strength 5/5 (ambulatory with 5+ rt hand grasp) ED Treatment Course - RADIOLOGY Radiology Studies Ordered: Category Date Time Status FACIAL BONES CT W/O CONTRAST [CT] Stat CT Scan 10/06/19 09:[address] WITHOUT CONTRAST [CT] Stat CT Scan 10/06/19 09:02 Ordered WRIST- RIGHT [RAD] Stat Radiology 10/06/19 09:02 Ordered Medical Decision Making - Medical Decision Making 10/06/19 09:43 CC: Status post mechanical fall sustaining injury to right wrist face and head. Exam: Patient with numerous abrasions to face and forehead along with swelling to her lower lip. Patient with point tenderness to the distal aspect of right radius. Plan: Wrist x-ray along with head and facial CT 10/06/19 10:19 Patient's Steven x-ray negative for acute pathology. patient is AO x3 and ambulato ry here. Patient has appointment with her dentist tomorrow incidentally 10/06/19 10:[address] negative for acute pathology. Discharge - Discharge Information Problems reviewed: Yes Clinical Impression/Diagnosis: Contusion Condition: Good Disposition: HOME - Follow up/Referral - Patient Discharge Instructions Patient Printed Discharge Instructions: DI for Contusion Additional Instructions: May take Tylenol for discomfort. Apply ice to the affected areas for the next few days to alleviate swelling. - Post Discharge Activity
[2019-10-06] MEDS ORDERED: ACETAMINOPHEN 325 MG TABLET (FP) PO ONE (10:24)
== END 2019-10-06 10:29 | disposition home or self-care (01) ==
LOC: JER 08:40
DX: S00.83XA Contusion of other part of head, initial encounter (principal)
CPT/HCPCS: 70450-TC; 70486-TC; 73110-TC-RT-FY; 99284-25

== ENCOUNTER 2020-08-28 12:25 | Emergency (ER) | payer OTHER, MEDICARE ==
[2020-08-28 12:31] VITALS: BMI 23.0
[2020-08-28] MEDS ORDERED: ACETAMINOPHEN 325 MG TABLET (FP) PO ONE (12:46)
[2020-08-28] MEDS ORDERED: ACETAMINOPHEN 325 MG TABLET (FP) ONE (12:59)
[2020-08-28] MEDS ORDERED: CEFAZOLIN 1 GM in DEXTROSE 5%-WATER - 50 ML IVPB ONE (13:31)
[2020-08-28] MEDS ORDERED: DIPHTH,PERTUSS(ACELL),TET 0.5 ML DISP.SYRIN IM ONE ×2 (13:32→13:53)
[2020-08-28] MEDS ORDERED: oxyCODONE HCL 5 MG TABLET PO ONE (13:33)
[2020-08-28] MEDS ORDERED: oxyCODONE HCL 5 MG TABLET ONE (13:57)
[2020-08-28] MEDS ORDERED: CEFAZOLIN 1 GM/D5W 1 GM/50 ML BAG ONE (13:58)
[2020-08-28 14:12] LABS: BASO % 1.3 % (0-2.0); EOS % 1.8 % (0-4.5); HEMOGLOBIN 12.2 GM/dL (10.7-15.3); LYMPH % 29.5 % (8-40); MCH 30.3 pg (25.7-33.7); MCHC 34.9 g/dl (32.0-36.0); MEAN CELL VOLUME 86.7 fl (80-96); MEAN PLT VOLUME 8.6 fl (7.5-11.1); MONO % 8.9 % (3.8-10.2); NEUT % 58.5 % (42.8-82.8); PLATELET COUNT 77 10^3/uL (134-434); RBC 4.03 M/mm3 (3.60-5.2); RDW 14.8 % (11.6-15.6); WHITE BLOOD COUNT 5.6 K/mm3 (4.0-10.0)
[2020-08-28 14:18] LABS: INR 1.13 (0.83-1.09); PROTHROMBIN TIME (PATIENT) 13.6 SEC (9.7-13.0)
[2020-08-28 14:28] LABS: CALCIUM 9.4 mg/dL (8.5-10.1)
[2020-08-28 14:29] LABS: ALBUMIN 3.6 g/dl (3.4-5.0); BLOOD UREA NITROGEN 16.3 mg/dL (7-18)
[2020-08-28 14:32] LABS: CREATININE 0.6 mg/dL (0.55-1.3)
[2020-08-28 14:34] LABS: BILIRUBIN,TOTAL 0.9 mg/dL (0.2-1); TOT PROT 6.9 g/dl (6.4-8.2)
[2020-08-28] MEDS ORDERED: oxyCODONE HCL 5 MG TABLET PO PRN (15:38)
[2020-08-28] MEDS ORDERED: ACETAMINOPHEN 325 MG TABLET (FP) PO PRN (15:38)
[2020-08-28] MEDS ORDERED: ONDANSETRON 4 MG/2 ML VIAL IVPUSH PRN (15:41)
[2020-08-28] MEDS ORDERED: POLYETHYLENE GLYCOL (HEALTHYLAX) 3350 17 GM PACKET PO SCH (15:45)
[2020-08-28] MEDS ORDERED: INSULIN SLIDING SCALE (NOVOLOG) 1 VIAL SQ SCH (16:30)
[2020-08-28 17:47] LABS: EPI CELLS 17 /uL (0-25.1); HYALINE CASTS 4 /uL (0-3.1); PH,URINE 5.5 (5.0-8.0); URINE APPEARANCE CLEAR; URINE BACTERIA 76 /uL (0-1359); URINE BILIRUBIN NEGATIVE (NEGATIVE); URINE COLOR DK YELLOW; URINE GLUCOSE (UA) NEGATIVE (NEGATIVE); URINE KETONE TRACE (NEGATIVE); URINE LEUK ESTERASE 1+ (NEGATIVE); URINE NITRITE NEGATIVE (NEGATIVE); URINE PROTEIN NEGATIVE (NEGATIVE); URINE RBC 24 /uL (0-23.9); URINE WBC 60 /uL (0-25.8)
[2020-08-28] MEDS ORDERED: POLYETHYLENE GLYCOL (HEALTHYLAX) 3350 17 GM PACKET ONE (17:54)
[2020-08-28 19:12] LABS: URINE CRYSTALS MODERATE /hpf
[2020-08-28 21:43] VITALS: BP 142/86; PULSE 72; TEMP 98.3
[2020-08-28] MEDS ORDERED: ATORVASTATIN CA 10 MG TABLET (FP) PO SCH (22:00)
[2020-08-28] MEDS ORDERED: LOSARTAN POTASSIUM 25 MG TABLET PO SCH (22:00)
[2020-08-28] MEDS ORDERED: MELATONIN 5 MG TABLETS PO SCH (22:00)
[2020-08-28] MEDS ORDERED: TIMOLOL 0.5% OPHTHALMIC SOL 5 ML BOTTLE OU SCH (22:00)
[2020-08-28] MEDS ORDERED: FAMOTIDINE 20 MG TABLET PO SCH (22:00)
[2020-08-29] MEDS ORDERED: FUROSEMIDE 20 MG TABLET (FP) PO SCH (06:00)
== END 2020-08-28 22:51 | disposition home or self-care (01) ==
LOC: JER 12:25 → UNDOADMIN 15:31 → JERBED 15:31 → JER 22:51
PROC: 3E03329 Introduction of Other Anti-infective into Peripheral Vein, Percutaneous Approach (ICD-10-PCS; principal; 2020-08-28)
PROC: 3E0234Z Introduction of Serum, Toxoid and Vaccine into Muscle, Percutaneous Approach (ICD-10-PCS; 2020-08-28)
PROC: 3E033GC Introduction of Other Therapeutic Substance into Peripheral Vein, Percutaneous Approach (ICD-10-PCS; 2020-08-28)
DX: S42.402B Unspecified fracture of lower end of left humerus, initial encounter for open fracture (principal); W01.0XXA Fall on same level from slipping, tripping and stumbling without subsequent striking against object, initial encounter; Y92.512 Supermarket, store or market as the place of occurrence of the external cause; Y93.01 Activity, walking, marching and hiking
CPT/HCPCS: 36415; 73060-TC-LT-FY; 73070-TC-LT-FY; 80053; 81003; 82962; 84484; 85025; 85610; 86850; 86900; 86901; 87086; 90471; 90715; 93005; 93010; 96372; 96374; 96375; 99285-25; C9803; U0003; U0005

== ENCOUNTER 2020-11-12 11:36 | Inpatient (IN) | payer OTHER, MEDICARE ==
[2020-11-12 13:51] LABS: EPI CELLS 4 /uL (0-25.1); HYALINE CASTS 2 /uL (0-3.1); PH,URINE 5.5 (5.0-8.0); URINE APPEARANCE CLOUDY; URINE BACTERIA >9,000 /uL (0-1359); URINE BILIRUBIN NEGATIVE (NEGATIVE); URINE COLOR YELLOW; URINE GLUCOSE (UA) NEGATIVE (NEGATIVE); URINE KETONE NEGATIVE (NEGATIVE); URINE LEUK ESTERASE 3+ (NEGATIVE); URINE NITRITE NEGATIVE (NEGATIVE); URINE PROTEIN 1+ (NEGATIVE); URINE RBC 61 /uL (0-23.9); URINE WBC 3842 /uL (0-25.8)
[2020-11-12 13:57] LABS: INR 1.16 (0.83-1.09); PROTHROMBIN TIME (PATIENT) 14.3 SEC (9.7-13.0)
[2020-11-12 13:59] LABS: VENOUS BASE EXCESS -2.4 mmol/L (-2-2); VENOUS O2 SATURATION 80.3 % (70-80); VENOUS PCO2 34.4 mmHg (38-52); VENOUS PH 7.412 (7.310-7.410)
[2020-11-12 14:02] LABS: BASO % 0.7 % (0-2.0); EOS % 0.8 % (0-4.5); HEMATOCRIT 33.5 % (32.4-45.2); HEMOGLOBIN 11.6 GM/dL (10.7-15.3); LYMPH % 13.1 % (8-40); MCH 29.9 pg (25.7-33.7); MCHC 34.5 g/dl (32.0-36.0); MEAN CELL VOLUME 86.5 fl (80-96); MEAN PLT VOLUME 8.9 fl (7.5-11.1); MONO % 7.9 % (3.8-10.2); NEUT % 77.5 % (42.8-82.8); PLATELET COUNT 62 10^3/uL (134-434); RBC 3.87 M/mm3 (3.60-5.2); RDW 14.5 % (11.6-15.6); WHITE BLOOD COUNT 6.6 K/mm3 (4.0-10.0)
[2020-11-12 14:09] LABS: ALBUMIN 3.2 g/dl (3.4-5.0); BLOOD UREA NITROGEN 17.8 mg/dL (7-18); CALCIUM 9.1 mg/dL (8.5-10.1)
[2020-11-12 14:10] LABS: CO2 23 mmol/L (21-32); GLUCOSE,RANDOM 171 mg/dL (74-106)
[2020-11-12 14:12] LABS: SGOT/AST 34 U/L (15-37); SGPT/ALT 25 U/L (13-61)
[2020-11-12 14:13] LABS: BILIRUBIN,DIRECT 0.3 mg/dL (0.0-0.2); CREATININE 0.8 mg/dL (0.55-1.3)
[2020-11-12 14:14] LABS: BILIRUBIN,TOTAL 1.1 mg/dL (0.2-1); TOT PROT 6.9 g/dl (6.4-8.2)
[2020-11-12 14:15] LABS: ALK PHOS 76 U/L (45-117)
[2020-11-12 14:27] LABS: LACTIC ACID 3.3 mmol/L (0.4-2.0)
[2020-11-12 14:31] LABS: SODIUM 143 mmol/L (136-145)
[2020-11-12] MEDS ORDERED: SODIUM CHLORIDE 1,000 ML IV STA (14:37)
[2020-11-12] MEDS ORDERED: CEFTRIAXONE 1,000 MG in DEXTROSE 5%-WATER - 50 ML IVPB ONE (14:37)
[2020-11-12] MEDS ORDERED: cefTRIAXone SODIUM 1 GM VIAL ONE (14:41)
[2020-11-12 15:02] LABS: ANION GAP 8 MMOL/L (8-16); CHLORIDE 112 mmol/L (98-107)
[2020-11-12] MEDS ORDERED: FLUCONAZOLE 150 MG TABLET PO ONE ×2 (16:24→16:25)
[2020-11-12 20:03] LABS: LACTIC ACID 2.3 mmol/L (0.4-2.0)
[2020-11-12] MEDS ORDERED: MULTIVITAMINS THER W-MINERALS COMBO TABLET (FP) PO SCH (22:00)
[2020-11-12] MEDS ORDERED: INSULIN (NOVOLOG) ASPART 100 UNITS/ML 10ML VIAL ONE (22:55)
[2020-11-12] MEDS: ATORVASTATIN CA 10 MG TABLET (FP) PO SCH (23:03)
[2020-11-12] MEDS: INSULIN SLIDING SCALE (NOVOLOG) 1 VIAL SQ SCH (23:03)
[2020-11-13 00:12] VITALS: BMI 32.5
[2020-11-13] MEDS: SODIUM CHLORIDE 1,000 ML IV SCH ×3 (01:37→19:06)
[2020-11-13] MEDS: INSULIN SLIDING SCALE (NOVOLOG) 1 VIAL SQ SCH ×4 (06:29→21:03)
[2020-11-13 07:48] LABS: HEMATOCRIT 29.8 % (32.4-45.2); HEMOGLOBIN 10.3 GM/dL (10.7-15.3); MCHC 34.6 g/dl (32.0-36.0); MEAN CELL VOLUME 86.6 fl (80-96); MEAN PLT VOLUME 8.9 fl (7.5-11.1); PLATELET COUNT 59 10^3/uL (134-434); RBC 3.44 M/mm3 (3.60-5.2); RDW 14.3 % (11.6-15.6); WHITE BLOOD COUNT 4.5 K/mm3 (4.0-10.0)
[2020-11-13 08:14] LABS: BLOOD UREA NITROGEN 14.8 mg/dL (7-18); CALCIUM 9.1 mg/dL (8.5-10.1)
[2020-11-13 08:17] LABS: CREATININE 0.6 mg/dL (0.55-1.3)
[2020-11-13] MEDS ORDERED: PT OWN MED DRAWER 7, Y5N ONE (09:03)
[2020-11-13] MEDS ORDERED: DEXTROSE 5%-WATER - 50 ML IVPB ONE (09:03)
[2020-11-13] MEDS ORDERED: cefTRIAXone SODIUM 1 GM VIAL ONE (09:03)
[2020-11-13] MEDS: LORATADINE 10 MG TABLET PO SCH (09:12)
[2020-11-13] MEDS: MULTIVITAMINS THER W-MINERALS COMBO TABLET (FP) PO SCH (09:12)
[2020-11-13] MEDS: CHOLECALCIFEROL (VIT D3) 1,000 UNIT (25 MCG) TABLET PO SCH (09:12)
[2020-11-13] MEDS: CEFTRIAXONE 1 GM in DEXTROSE 5%-WATER - 50 ML IVPB SCH (09:13)
[2020-11-13] MEDS ORDERED: PATIENT'S OWN MEDICATION (NON-FORMULARY) (Multivitamin [Multiple Vitamins] 1 EACH Tablet) PO SCH (10:00)
[2020-11-13] MEDS ORDERED: PNEUMOC 13-VAL CONJ-DIP CRM/PF 0.5 ML DISP.SYRIN IM ONE (10:00)
[2020-11-13] MEDS: FENOFIBRIC ACID 135 MG CAP PO SCH (15:14)
[2020-11-13] MEDS: VITAMIN E 400 INTERNATIONAL-UNITS CAPSULE (FP) PO SCH (15:16)
[2020-11-13] MEDS ORDERED: FLU VACC QS2021-22(6MOS UP)/PF 60 MCG/0.5 ML SYRINGE IM ONE (19:08)
[2020-11-13] MEDS: LOSARTAN POTASSIUM 25 MG TABLET PO SCH (21:02)
[2020-11-13] MEDS: FAMOTIDINE 20 MG TABLET PO SCH (21:03)
[2020-11-13] MEDS: ATORVASTATIN CA 10 MG TABLET (FP) PO SCH (21:03)
[2020-11-13] MEDS ORDERED: metoPROLOL SUCCINATE 25 MG TAB.SR.24H (FP) PO SCH (22:00)
[2020-11-14] MEDS: INSULIN SLIDING SCALE (NOVOLOG) 1 VIAL SQ SCH ×2 (06:17→11:57)
[2020-11-14 06:25] VITALS: TEMP 98.6
[2020-11-14] MEDS ORDERED: cefTRIAXone SODIUM 1 GM VIAL ONE (08:50)
[2020-11-14] MEDS ORDERED: DEXTROSE 5%-WATER - 50 ML IVPB ONE (08:50)
[2020-11-14] MEDS: LORATADINE 10 MG TABLET PO SCH (09:13)
[2020-11-14] MEDS: MULTIVITAMINS THER W-MINERALS COMBO TABLET (FP) PO SCH (09:13)
[2020-11-14] MEDS: LOSARTAN POTASSIUM 25 MG TABLET PO SCH (09:13)
[2020-11-14] MEDS: CHOLECALCIFEROL (VIT D3) 1,000 UNIT (25 MCG) TABLET PO SCH (09:13)
[2020-11-14] MEDS: VITAMIN E 400 INTERNATIONAL-UNITS CAPSULE (FP) PO SCH (09:14)
[2020-11-14] MEDS: FENOFIBRIC ACID 135 MG CAP PO SCH (09:14)
[2020-11-14] MEDS: CEFTRIAXONE 1 GM in DEXTROSE 5%-WATER - 50 ML IVPB SCH (09:14)
[2020-11-14 09:22] VITALS: BP 148/61; PULSE 73
[2020-11-14] MEDS: FAMOTIDINE 20 MG TABLET PO SCH (09:25)
[2020-11-14 09:31] LABS: BASO % 0.9 % (0-2.0); EOS % 3.5 % (0-4.5); HEMATOCRIT 31.7 % (32.4-45.2); HEMOGLOBIN 10.9 GM/dL (10.7-15.3); LYMPH % 25.6 % (8-40); MCHC 34.4 g/dl (32.0-36.0); MEAN CELL VOLUME 87.2 fl (80-96); MEAN PLT VOLUME 8.6 fl (7.5-11.1); MONO % 10.6 % (3.8-10.2); NEUT % 59.4 % (42.8-82.8); PLATELET COUNT 59 10^3/uL (134-434); RBC 3.63 M/mm3 (3.60-5.2); RDW 14.4 % (11.6-15.6); WHITE BLOOD COUNT 3.7 K/mm3 (4.0-10.0)
[2020-11-14] MEDS ORDERED: FUROSEMIDE 20 MG TABLET (FP) PO SCH (10:00)
[2020-11-14] MEDS ORDERED: ASPIRIN 81 MG CHEWABLE TABLETS PO SCH (10:00)
[2020-11-14 10:01] LABS: CALCIUM 8.3 mg/dL (8.5-10.1)
[2020-11-14 10:02] LABS: ALBUMIN 2.9 g/dl (3.4-5.0); MAGNESIUM 1.7 mg/dL (1.8-2.4)
[2020-11-14 10:05] LABS: CREATININE 0.7 mg/dL (0.55-1.3)
[2020-11-14 10:06] LABS: BILIRUBIN,TOTAL 0.8 mg/dL (0.2-1); PHOSPHOROUS 3.1 mg/dL (2.5-4.9)
[2020-11-14 10:07] LABS: TOT PROT 6.4 g/dl (6.4-8.2)
[2020-11-14 10:08] LABS: BLOOD UREA NITROGEN 12.5 mg/dL (7-18)
== END 2020-11-14 12:36 | disposition home or self-care (01) | DRG 690 ==
LOC: JER 11:36 → JERBED 16:56 → J7W 21:01
PROVIDERS: ADMIT Internal Medicine
DX: N39.0 Urinary tract infection, site not specified (principal); B95.2 Enterococcus as the cause of diseases classified elsewhere; I10 Essential (primary) hypertension; E78.5 Hyperlipidemia, unspecified; E11.9 Type 2 diabetes mellitus without complications; K21.9 Gastro-esophageal reflux disease without esophagitis; K57.90 Diverticulosis of intestine, part unspecified, without perforation or abscess without bleeding; K44.9 Diaphragmatic hernia without obstruction or gangrene; R00.0 Tachycardia, unspecified; M81.0 Age-related osteoporosis without current pathological fracture; D69.6 Thrombocytopenia, unspecified; E66.9 Obesity, unspecified; Z68.32 Body mass index [BMI] 32.0-32.9, adult
CPT/HCPCS: 36415; 71045-TC-FY; 80048; 80053; 81003; 82248; 82550; 82728; 82803; 82962; 83605; 83615; 83735; 84100; 84484; 85025; 85027; 85610; 85730; 86140; 87040; 87086; 87186; 87804; 90670; 90686; 93005; 93010; 99285-25; C9803; G0008; G0009; U0003; U0005

== ENCOUNTER 2021-05-19 09:39 | Inpatient (IN) | payer OTHER, MEDICARE ==
[2021-05-19] MEDS ORDERED: LACTATED RINGERS SOLUTION 1000 ML INFUS.BAG IV ONE (10:58)
[2021-05-19 11:41] LABS: BASO % 1.2 % (0-2.0); EOS % 0.3 % (0-4.5); HEMOGLOBIN 14.4 GM/dL (10.7-15.3); LYMPH % 17.3 % (8-40); MCH 30.4 pg (25.7-33.7); MCHC 34.4 g/dl (32.0-36.0); MEAN CELL VOLUME 88.6 fl (80-96); MEAN PLT VOLUME 9.5 fl (7.5-11.1); MONO % 11.4 % (3.8-10.2); NEUT % 69.8 % (42.8-82.8); PLATELET COUNT 61 10^3/uL (134-434); RBC 4.74 M/mm3 (3.60-5.2); RDW 14.9 % (11.6-15.6); WHITE BLOOD COUNT 3.8 K/mm3 (4.0-10.0)
[2021-05-19 11:57] LABS: ALBUMIN 3.4 g/dl (3.4-5.0); BLOOD UREA NITROGEN 15.1 mg/dL (7-18); CALCIUM 8.9 mg/dL (8.5-10.1); MAGNESIUM 1.8 mg/dL (1.8-2.4)
[2021-05-19 12:00] LABS: CREATININE 0.7 mg/dL (0.55-1.3)
[2021-05-19 12:03] LABS: TOT PROT 7.5 g/dl (6.4-8.2)
[2021-05-19 14:34] LABS: PH,URINE 6.5 (5.0-8.0); URINE APPEARANCE CLEAR; URINE BILIRUBIN NEGATIVE (NEGATIVE); URINE COLOR YELLOW; URINE GLUCOSE (UA) NEGATIVE (NEGATIVE); URINE KETONE NEGATIVE (NEGATIVE); URINE LEUK ESTERASE NEGATIVE (NEGATIVE); URINE NITRITE NEGATIVE (NEGATIVE); URINE PROTEIN NEGATIVE (NEGATIVE)
[2021-05-19 22:44] LABS: COCAINE, UR NEGATIVE (NEGATIVE); METHADONE, UR NEGATIVE (NEGATIVE); OPIATES, URI NEGATIVE (NEGATIVE); PHENCYCLIDINE,URINE NEGATIVE (NEGATIVE); URINE AMPHETAMINES NEGATIVE (NEGATIVE); URINE BARBITURATES NEGATIVE (NEGATIVE); URINE BENZODIAZEPINES NEGATIVE (NEGATIVE)
[2021-05-20] MEDS: INSULIN SLIDING SCALE (NOVOLOG) 1 VIAL SQ SCH ×5 (00:58→23:01)
[2021-05-20 03:31] LABS: PH,URINE 6.5 (5.0-8.0); URINE APPEARANCE CLEAR; URINE BILIRUBIN NEGATIVE (NEGATIVE); URINE COLOR DK YELLOW; URINE GLUCOSE (UA) NEGATIVE (NEGATIVE); URINE KETONE NEGATIVE (NEGATIVE); URINE LEUK ESTERASE NEGATIVE (NEGATIVE); URINE NITRITE NEGATIVE (NEGATIVE); URINE PROTEIN NEGATIVE (NEGATIVE)
[2021-05-20 08:12] LABS: BASO % 0.9 % (0-2.0); EOS % 1.1 % (0-4.5); HEMATOCRIT 40.5 % (32.4-45.2); HEMOGLOBIN 14.2 GM/dL (10.7-15.3); LYMPH % 29.6 % (8-40); MCH 30.6 pg (25.7-33.7); MEAN CELL VOLUME 87.3 fl (80-96); MEAN PLT VOLUME 8.9 fl (7.5-11.1); MONO % 11.4 % (3.8-10.2); PLATELET COUNT 68 10^3/uL (134-434); RBC 4.64 M/mm3 (3.60-5.2); RDW 15.3 % (11.6-15.6); WHITE BLOOD COUNT 5.7 K/mm3 (4.0-10.0)
[2021-05-20 08:29] LABS: MAGNESIUM 1.7 mg/dL (1.8-2.4)
[2021-05-20 08:30] LABS: ALBUMIN 3.4 g/dl (3.4-5.0); BLOOD UREA NITROGEN 12.6 mg/dL (7-18)
[2021-05-20 08:32] LABS: CREATININE 0.6 mg/dL (0.55-1.3)
[2021-05-20 08:33] LABS: PHOSPHOROUS 2.6 mg/dL (2.5-4.9)
[2021-05-20 08:34] LABS: TOT PROT 7.3 g/dl (6.4-8.2)
[2021-05-20 08:36] LABS: BILIRUBIN,TOTAL 2.7 mg/dL (0.2-1)
[2021-05-20 08:57] LABS: SYPHILIS W/ RPR CONF NON-REACTIVE (NONREACTIVE)
[2021-05-20] MEDS ORDERED: ENOXAPARIN NA (PORCINE) 40 MG/0.4 ML DISP.SYRIN SQ ONE (09:22)
[2021-05-20] MEDS ORDERED: FUROSEMIDE 20 MG TABLET (FP) ONE (09:22)
[2021-05-20] MEDS: LOSARTAN POTASSIUM 25 MG TABLET PO SCH ×2 (09:29→23:01)
[2021-05-20] MEDS: FUROSEMIDE 20 MG TABLET (FP) PO SCH (09:29)
[2021-05-20] MEDS: ENOXAPARIN NA (PORCINE) 40 MG/0.4 ML DISP.SYRIN SQ SCH (09:29)
[2021-05-20] MEDS ORDERED: ATORVASTATIN CA 10 MG TABLET (FP) PO SCH (22:00)
[2021-05-20 22:46] VITALS: BMI 32.8
[2021-05-20] MEDS: FAMOTIDINE 20 MG TABLET PO SCH (23:01)
[2021-05-21] MEDS: INSULIN SLIDING SCALE (NOVOLOG) 1 VIAL SQ SCH ×4 (05:59→21:49)
[2021-05-21 06:58] LABS: BASO % 1.1 % (0-2.0); EOS % 1.4 % (0-4.5); HEMATOCRIT 37.9 % (32.4-45.2); HEMOGLOBIN 13.2 GM/dL (10.7-15.3); LYMPH % 40.3 % (8-40); MCH 30.5 pg (25.7-33.7); MEAN CELL VOLUME 87.2 fl (80-96); MEAN PLT VOLUME 9.1 fl (7.5-11.1); MONO % 12.5 % (3.8-10.2); NEUT % 44.7 % (42.8-82.8); PLATELET COUNT 68 10^3/uL (134-434); RBC 4.34 M/mm3 (3.60-5.2); RDW 15.4 % (11.6-15.6); WHITE BLOOD COUNT 5.8 K/mm3 (4.0-10.0)
[2021-05-21 07:17] LABS: ALBUMIN 2.9 g/dl (3.4-5.0)
[2021-05-21 07:18] LABS: BLOOD UREA NITROGEN 19.4 mg/dL (7-18); CALCIUM 8.5 mg/dL (8.5-10.1)
[2021-05-21 07:20] LABS: BILIRUBIN,DIRECT 0.7 mg/dL (0.0-0.2)
[2021-05-21 07:21] LABS: CREATININE 0.6 mg/dL (0.55-1.3)
[2021-05-21 07:22] LABS: BILIRUBIN,TOTAL 2.4 mg/dL (0.2-1); TOT PROT 6.5 g/dl (6.4-8.2)
[2021-05-21 07:23] LABS: BILIRUBIN,TOTAL 2.4 mg/dL (0.2-1); TOT PROT 6.3 g/dl (6.4-8.2)
[2021-05-21] MEDS: ENOXAPARIN NA (PORCINE) 40 MG/0.4 ML DISP.SYRIN SQ SCH (09:43)
[2021-05-21] MEDS: LOSARTAN POTASSIUM 25 MG TABLET PO SCH ×2 (09:44→21:07)
[2021-05-21] MEDS: FUROSEMIDE 20 MG TABLET (FP) PO SCH (09:44)
[2021-05-21] MEDS: FAMOTIDINE 20 MG TABLET PO SCH ×2 (09:44→21:07)
[2021-05-21] MEDS ORDERED: ATORVASTATIN CA 10 MG TABLET (FP) PO SCH (22:00)
[2021-05-22] MEDS: INSULIN SLIDING SCALE (NOVOLOG) 1 VIAL SQ SCH ×2 (06:02→11:46)
[2021-05-22 08:17] LABS: BASO % 0.9 % (0-2.0); EOS % 2.7 % (0-4.5); HEMATOCRIT 35.6 % (32.4-45.2); HEMOGLOBIN 12.5 GM/dL (10.7-15.3); LYMPH % 39.3 % (8-40); MCH 30.5 pg (25.7-33.7); MCHC 35.2 g/dl (32.0-36.0); MEAN CELL VOLUME 86.6 fl (80-96); MEAN PLT VOLUME 8.6 fl (7.5-11.1); NEUT % 46.1 % (42.8-82.8); PLATELET COUNT 83 10^3/uL (134-434); RBC 4.11 M/mm3 (3.60-5.2); RDW 14.9 % (11.6-15.6); WHITE BLOOD COUNT 5.9 K/mm3 (4.0-10.0)
[2021-05-22 08:26] LABS: INR 1.26 (0.83-1.09); PROTHROMBIN TIME (PATIENT) 14.5 SEC (9.7-13.0)
[2021-05-22 08:29] LABS: ACTIVATED PTT 29.9 SECONDS (25.2-36.5)
[2021-05-22 08:38] LABS: ALBUMIN 2.8 g/dl (3.4-5.0); BLOOD UREA NITROGEN 15.1 mg/dL (7-18); CALCIUM 8.7 mg/dL (8.5-10.1)
[2021-05-22 08:41] LABS: BILIRUBIN,DIRECT 0.7 mg/dL (0.0-0.2); CREATININE 0.6 mg/dL (0.55-1.3)
[2021-05-22 08:43] LABS: BILIRUBIN,TOTAL 2.6 mg/dL (0.2-1); TOT PROT 6.2 g/dl (6.4-8.2)
[2021-05-22 09:01] VITALS: BP 118/69; PULSE 81; TEMP 99.1
[2021-05-22] MEDS: LOSARTAN POTASSIUM 25 MG TABLET PO SCH (09:57)
[2021-05-22] MEDS: FAMOTIDINE 20 MG TABLET PO SCH (09:57)
[2021-05-22] MEDS ORDERED: FUROSEMIDE 20 MG TABLET (FP) PO SCH (10:00)
[2021-05-22] MEDS ORDERED: ENOXAPARIN NA (PORCINE) 40 MG/0.4 ML DISP.SYRIN SQ SCH (10:00)
== END 2021-05-22 12:17 | disposition home or self-care (01) | DRG 92 ==
LOC: JER 09:39 → JERBED 17:58 → J2W 05-20 22:21 → J5S 05-21 14:45
PROVIDERS: ADMIT Internal Medicine; ATTEND Nurse Practitioner Family
DX: G92.9 Unspecified toxic encephalopathy (principal); I24.8 Other forms of acute ischemic heart disease; D69.6 Thrombocytopenia, unspecified; K72.90 Hepatic failure, unspecified without coma; J44.9 Chronic obstructive pulmonary disease, unspecified; I10 Essential (primary) hypertension; E11.39 Type 2 diabetes mellitus with other diabetic ophthalmic complication; K75.81 Nonalcoholic steatohepatitis (NASH); D69.59 Other secondary thrombocytopenia; I48.0 Paroxysmal atrial fibrillation; I25.10 Atherosclerotic heart disease of native coronary artery without angina pectoris; E78.5 Hyperlipidemia, unspecified; L40.9 Psoriasis, unspecified; K21.9 Gastro-esophageal reflux disease without esophagitis; T50.B95A Adverse effect of other viral vaccines, initial encounter; Y92.89 Other specified places as the place of occurrence of the external cause; E66.9 Obesity, unspecified; Z68.32 Body mass index [BMI] 32.0-32.9, adult
CPT/HCPCS: 36415; 70450-TC; 70551-TC; 71045-TC-FY; 76705-TC; 80053; 80061; 80076; 80307; 81003; 82105; 82136; 82140; 82607; 82746; 82962; 83036; 83735; 83918; 84100; 84443; 84484; 85025; 85610; 85730; 86704; 86705; 86780; 86803; 87086; 87340; 87517; 93005; 93010; 93306-TC; 93880-TC; 97116-GP; 97161-GP; 99285-25; C9803-CS; U0003; U0005

== ENCOUNTER 2021-08-08 08:49 | Emergency (ER) | payer OTHER, MEDICARE ==
[2021-08-08 09:01] VITALS: TEMP 98; BMI 33.5
[2021-08-08 11:12] LABS: BASO % 1.3 % (0-2.0); EOS % 2.3 % (0-4.5); HEMATOCRIT 38.5 % (32.4-45.2); HEMOGLOBIN 13.5 GM/dL (10.7-15.3); LYMPH % 32.2 % (8-40); MCH 30.9 pg (25.7-33.7); MCHC 35.1 g/dl (32.0-36.0); MEAN CELL VOLUME 88.1 fl (80-96); MEAN PLT VOLUME 9.2 fl (7.5-11.1); MONO % 9.9 % (3.8-10.2); NEUT % 54.3 % (42.8-82.8); PLATELET COUNT 71 10^3/uL (134-434); RBC 4.37 M/mm3 (3.60-5.2); RDW 14.1 % (11.6-15.6); WHITE BLOOD COUNT 4.8 K/mm3 (4.0-10.0)
[2021-08-08 11:15] LABS: EPI CELLS 9 /uL (0-25.1); HYALINE CASTS 1 /uL (0-3.1); URINE APPEARANCE CLEAR; URINE BACTERIA 14 /uL (0-1359); URINE BILIRUBIN NEGATIVE (NEGATIVE); URINE COLOR YELLOW; URINE GLUCOSE (UA) NEGATIVE (NEGATIVE); URINE KETONE NEGATIVE (NEGATIVE); URINE LEUK ESTERASE 1+ (NEGATIVE); URINE NITRITE NEGATIVE (NEGATIVE); URINE PROTEIN NEGATIVE (NEGATIVE); URINE RBC 8 /uL (0-23.9); URINE WBC 13 /uL (0-25.8)
[2021-08-08 11:44] LABS: CALCIUM 9.4 mg/dL (8.5-10.1)
[2021-08-08 11:45] LABS: ALBUMIN 3.4 g/dl (3.4-5.0); BLOOD UREA NITROGEN 11.5 mg/dL (7-18); MAGNESIUM 1.8 mg/dL (1.8-2.4)
[2021-08-08 11:48] LABS: CREATININE 0.6 mg/dL (0.55-1.3); PHOSPHOROUS 3.8 mg/dL (2.5-4.9)
[2021-08-08 11:49] LABS: TOT PROT 6.9 g/dl (6.4-8.2)
[2021-08-08 11:50] LABS: BILIRUBIN,TOTAL 1.5 mg/dL (0.2-1)
[2021-08-08 13:22] VITALS: BP 158/67; PULSE 77
== END 2021-08-08 13:44 | disposition home or self-care (01) ==
LOC: JER 08:49
DX: R25.1 Tremor, unspecified (principal)
CPT/HCPCS: 36415; 71045-TC-FY; 80053; 81003; 83735; 84100; 84443; 84484; 85025; 87086; 93005; 93010; 99285-25

== ENCOUNTER 2021-12-24 16:07 | Emergency (ER) | payer OTHER, MEDICARE ==
[2021-12-24 17:13] VITALS: BP 155/76; PULSE 69; RESP 18; TEMP 98; BMI 33.3
[2021-12-24 20:52] LABS: EOS % 2.6 % (0-4.5); HEMATOCRIT 41.9 % (32.4-45.2); HEMOGLOBIN 14.1 GM/dL (10.7-15.3); LYMPH % 25.1 % (8-40); MCH 29.3 pg (25.7-33.7); MCHC 33.7 g/dl (32.0-36.0); MEAN CELL VOLUME 86.9 fl (80-96); MEAN PLT VOLUME 9.7 fl (7.5-11.1); MONO % 8.9 % (3.8-10.2); NEUT % 62.4 % (42.8-82.8); PLATELET COUNT 88 10^3/uL (134-434); RBC 4.82 M/mm3 (3.60-5.2); RDW 14.7 % (11.6-15.6); WHITE BLOOD COUNT 6.8 K/mm3 (4.0-10.0)
[2021-12-24 20:57] LABS: EPI CELLS 7 /uL (0-25.1); HYALINE CASTS 0 /uL (0-3.1); PH,URINE 7.5 (5.0-8.0); URINE APPEARANCE CLEAR; URINE BACTERIA 30 /uL (0-1359); URINE BILIRUBIN NEGATIVE (NEGATIVE); URINE COLOR YELLOW; URINE GLUCOSE (UA) NEGATIVE (NEGATIVE); URINE KETONE NEGATIVE (NEGATIVE); URINE LEUK ESTERASE TRACE (NEGATIVE); URINE NITRITE NEGATIVE (NEGATIVE); URINE PROTEIN NEGATIVE (NEGATIVE); URINE RBC 23 /uL (0-23.9); URINE WBC 20 /uL (0-25.8)
== END 2021-12-24 22:32 | disposition home or self-care (01) ==
LOC: JER 16:07
DX: R25.1 Tremor, unspecified (principal)
CPT/HCPCS: 0241U-QW; 36415; 81003; 85025; 87086; 93005; 93010; 99284-25

== ENCOUNTER 2022-01-29 12:18 | Inpatient (IN) | payer OTHER, MEDICARE ==
[2022-01-29 12:59] VITALS: BMI 27.4
[2022-01-29 15:25] LABS: BASO % 1.1 % (0-2.0); EOS % 1.3 % (0-4.5); HEMATOCRIT 39.2 % (32.4-45.2); HEMOGLOBIN 13.2 GM/dL (10.7-15.3); LYMPH % 27.3 % (8-40); MCH 29.7 pg (25.7-33.7); MCHC 33.8 g/dl (32.0-36.0); MEAN CELL VOLUME 87.9 fl (80-96); MONO % 9.7 % (3.8-10.2); NEUT % 60.6 % (42.8-82.8); PLATELET COUNT 95 10^3/uL (134-434); RBC 4.46 M/mm3 (3.60-5.2); RDW 15.9 % (11.6-15.6); WHITE BLOOD COUNT 5.2 K/mm3 (4.0-10.0)
[2022-01-29 15:31] LABS: INR 1.37 (0.83-1.09); PROTHROMBIN TIME (PATIENT) 15.8 SEC (9.7-13.0)
[2022-01-29 15:34] LABS: ACTIVATED PTT 30.9 SECONDS (25.2-36.5)
[2022-01-29 15:52] LABS: ALBUMIN 3.1 g/dl (3.4-5.0); BLOOD UREA NITROGEN 18.5 mg/dL (7-18)
[2022-01-29 15:55] LABS: CREATININE 0.7 mg/dL (0.55-1.3)
[2022-01-29 15:57] LABS: TOT PROT 6.1 g/dl (6.4-8.2)
[2022-01-29 22:52] VITALS: RESP 18
[2022-01-30] MEDS: ENOXAPARIN NA (PORCINE) 40 MG/0.4 ML DISP.SYRIN SQ SCH (10:55)
[2022-01-30] MEDS ORDERED: LACTULOSE 20 GM/30 ML UDC (FOR ORAL USE ONLY) PO ONE (11:13)
[2022-01-30] MEDS ORDERED: LACTULOSE 20 GM/30 ML UDC (FOR ORAL USE ONLY) PO PRN (11:14)
[2022-01-30] MEDS: INSULIN SLIDING SCALE (NOVOLOG) 1 VIAL SQ SCH ×3 (12:24→21:13)
[2022-01-30 13:16] LABS: BASO % 1.3 % (0-2.0); EOS % 1.9 % (0-4.5); HEMATOCRIT 39.9 % (32.4-45.2); HEMOGLOBIN 13.7 GM/dL (10.7-15.3); LYMPH % 32.4 % (8-40); MCH 30.4 pg (25.7-33.7); MCHC 34.4 g/dl (32.0-36.0); MEAN CELL VOLUME 88.3 fl (80-96); MEAN PLT VOLUME 9.3 fl (7.5-11.1); MONO % 10.2 % (3.8-10.2); NEUT % 54.2 % (42.8-82.8); PLATELET COUNT 104 10^3/uL (134-434); RBC 4.51 M/mm3 (3.60-5.2); RDW 15.6 % (11.6-15.6); WHITE BLOOD COUNT 4.9 K/mm3 (4.0-10.0)
[2022-01-30 13:21] LABS: EPI CELLS 22 /uL (0-25.1); HYALINE CASTS 6 /uL (0-3.1); URINE APPEARANCE CLOUDY; URINE BACTERIA 265 /uL (0-1359); URINE BILIRUBIN NEGATIVE (NEGATIVE); URINE COLOR YELLOW; URINE GLUCOSE (UA) NEGATIVE (NEGATIVE); URINE KETONE NEGATIVE (NEGATIVE); URINE LEUK ESTERASE 3+ (NEGATIVE); URINE NITRITE NEGATIVE (NEGATIVE); URINE PROTEIN NEGATIVE (NEGATIVE); URINE RBC 17 /uL (0-23.9); URINE WBC 271 /uL (0-25.8)
[2022-01-30 13:31] LABS: BLOOD UREA NITROGEN 15.9 mg/dL (7-18); CALCIUM 9.2 mg/dL (8.5-10.1); MAGNESIUM 1.7 mg/dL (1.8-2.4)
[2022-01-30 13:32] LABS: YEAST NEGATIVE (NEGATIVE)
[2022-01-30 13:34] LABS: CREATININE 0.7 mg/dL (0.55-1.3)
[2022-01-30 13:35] LABS: BILIRUBIN,TOTAL 2.1 mg/dL (0.2-1); TOT PROT 6.2 g/dl (6.4-8.2)
[2022-01-30] MEDS ORDERED: MAGNESIUM SULF 50% (8.12 MEQ/2 ML-1 GM VIAL) IVPB ONE (18:32)
[2022-01-30] MEDS ORDERED: POTASSIUM PHOSPHATE 30 MM in DEXTROSE 5%-WATER - 500 ML IVPB ONE (19:30)
[2022-01-31] MEDS: INSULIN SLIDING SCALE (NOVOLOG) 1 VIAL SQ SCH ×2 (06:01→12:42)
[2022-01-31] MEDS: ENOXAPARIN NA (PORCINE) 40 MG/0.4 ML DISP.SYRIN SQ SCH (10:41)
[2022-01-31 11:23] LABS: HEMATOCRIT 38.1 % (32.4-45.2); HEMOGLOBIN 12.9 GM/dL (10.7-15.3); MCH 29.7 pg (25.7-33.7); MCHC 33.8 g/dl (32.0-36.0); MEAN CELL VOLUME 88.1 fl (80-96); MEAN PLT VOLUME 8.5 fl (7.5-11.1); PLATELET COUNT 93 10^3/uL (134-434); RBC 4.32 M/mm3 (3.60-5.2); WHITE BLOOD COUNT 5.8 K/mm3 (4.0-10.0)
[2022-01-31 11:58] LABS: BLOOD UREA NITROGEN 12.8 mg/dL (7-18); CALCIUM 9.4 mg/dL (8.5-10.1)
[2022-01-31 11:59] LABS: MAGNESIUM 1.7 mg/dL (1.8-2.4)
[2022-01-31 12:01] LABS: CREATININE 0.7 mg/dL (0.55-1.3); PHOSPHOROUS 2.8 mg/dL (2.5-4.9)
[2022-01-31 12:02] LABS: BILIRUBIN,TOTAL 1.6 mg/dL (0.2-1)
[2022-01-31 12:06] LABS: TOT PROT 5.8 g/dl (6.4-8.2)
[2022-01-31 15:41] VITALS: BP 117/70; PULSE 69; TEMP 97.7
== END 2022-01-31 16:44 | disposition home health service (06) | DRG 642 ==
LOC: JER 12:18 → JERBED 20:14 → J5S 01-30 00:17
PROVIDERS: ADMIT Internal Medicine; ATTEND Internal Medicine
DX: E72.20 Disorder of urea cycle metabolism, unspecified (principal); I10 Essential (primary) hypertension; E78.5 Hyperlipidemia, unspecified; E11.9 Type 2 diabetes mellitus without complications; K44.9 Diaphragmatic hernia without obstruction or gangrene; K75.81 Nonalcoholic steatohepatitis (NASH); K74.60 Unspecified cirrhosis of liver; Z96.612 Presence of left artificial shoulder joint; Z96.611 Presence of right artificial shoulder joint; R41.82 Altered mental status, unspecified; K59.00 Constipation, unspecified; I25.10 Atherosclerotic heart disease of native coronary artery without angina pectoris; K57.90 Diverticulosis of intestine, part unspecified, without perforation or abscess without bleeding; R25.1 Tremor, unspecified
CPT/HCPCS: 0241U-QW; 36415; 70450-TC; 80053; 81003; 82140; 82962; 83735; 84100; 85025; 85027; 85610; 85730; 93005; 93010; 97116-GP; 97161-GP; 99285-25

== ENCOUNTER 2022-02-25 20:56 | Emergency (ER) | payer OTHER, MEDICARE ==
[2022-02-25 21:00] VITALS: BP 145/56; PULSE 84; RESP 18; TEMP 98; BMI 30.9
== END 2022-02-25 21:52 | disposition home or self-care (01) ==
LOC: JERFT 20:56
DX: T16.1XXA Foreign body in right ear, initial encounter (principal)
CPT/HCPCS: 99282-25

== ENCOUNTER 2022-04-20 19:07 | Inpatient (IN) | payer OTHER, MEDICARE ==
[2022-04-20 19:19] VITALS: RESP 18; BMI 34.3
[2022-04-20] MEDS ORDERED: ACETAMINOPHEN 1000 MG/100 ML BAG IVPB ONE (20:12)
[2022-04-20 20:49] LABS: BASO % 0.6 % (0-2.0); EOS % 1.4 % (0-4.5); HEMATOCRIT 41.7 % (32.4-45.2); HEMOGLOBIN 14.2 GM/dL (10.7-15.3); LYMPH % 12.9 % (8-40); MCH 28.4 pg (25.7-33.7); MEAN CELL VOLUME 83.8 fl (80-96); MEAN PLT VOLUME 9.3 fl (7.5-11.1); MONO % 7.6 % (3.8-10.2); NEUT % 77.5 % (42.8-82.8); PLATELET COUNT 68 10^3/uL (134-434); RBC 4.98 M/mm3 (3.60-5.2); RDW 14.4 % (11.6-15.6); WHITE BLOOD COUNT 9.5 K/mm3 (4.0-10.0)
[2022-04-20 20:50] LABS: VENOUS BASE EXCESS -1.2 mmol/L (-2-2); VENOUS O2 SATURATION 77.6 % (70-80); VENOUS PCO2 37.1 mmHg (38-52); VENOUS PH 7.41 (7.310-7.410)
[2022-04-20 20:56] LABS: INR 1.31 (0.83-1.09); PROTHROMBIN TIME (PATIENT) 15.1 SEC (9.7-13.0)
[2022-04-20 21:08] LABS: CALCIUM 9.4 mg/dL (8.5-10.1)
[2022-04-20 21:09] LABS: ALBUMIN 3.4 g/dl (3.4-5.0); BLOOD UREA NITROGEN 17.4 mg/dL (7-18)
[2022-04-20] MEDS ORDERED: POTASSIUM CHLORIDE TABS 20 MEQ TABLET.ER (FP) PO ONE (21:11)
[2022-04-20 21:12] LABS: CREATININE 0.7 mg/dL (0.55-1.3)
[2022-04-20 21:14] LABS: TOT PROT 6.5 g/dl (6.4-8.2)
[2022-04-20 21:16] LABS: LACTIC ACID 2.1 mmol/L (0.4-2.0)
[2022-04-20] MEDS ORDERED: LACTULOSE 20 GM/30 ML UDC (FOR ORAL USE ONLY) PO ONE (21:48)
[2022-04-20] MEDS ORDERED: SODIUM CHLORIDE 0.9% 500 ML INFUS.BAG IV ONE (21:51)
[2022-04-20 22:23] LABS: EPI CELLS 18 /uL (0-25.1); HYALINE CASTS 3 /uL (0-3.1); URINE APPEARANCE Error; URINE BACTERIA 48 /uL (0-1359); URINE BILIRUBIN NEGATIVE (NEGATIVE); URINE COLOR DK YELLOW; URINE GLUCOSE (UA) TRACE (NEGATIVE); URINE KETONE NEGATIVE (NEGATIVE); URINE LEUK ESTERASE TRACE (NEGATIVE); URINE NITRITE NEGATIVE (NEGATIVE); URINE PROTEIN NEGATIVE (NEGATIVE); URINE RBC 27 /uL (0-23.9); URINE WBC 51 /uL (0-25.8)
[2022-04-21] MEDS ORDERED: LACTULOSE 20 GM/30 ML UDC (FOR ORAL USE ONLY) ONE (01:21)
[2022-04-21] MEDS ORDERED: POTASSIUM CHLORIDE TABS 20 MEQ TABLET.ER (FP) PO ONE (01:21)
[2022-04-21] MEDS ORDERED: ACETAMINOPHEN INJECTION 100 ML IVPB ONE (01:22)
[2022-04-21] MEDS ORDERED: CEFTRIAXONE 1,000 MG in DEXTROSE 5%-WATER - 50 ML IVPB ONE (01:42)
[2022-04-21] MEDS ORDERED: cefTRIAXone SODIUM 1 GM VIAL ONE (01:53)
[2022-04-21] MEDS ORDERED: LACTULOSE 20 GM/30 ML UDC (FOR ORAL USE ONLY) PO PRN (04:48)
[2022-04-21 09:06] LABS: MAGNESIUM 1.4 mg/dL (1.8-2.4)
[2022-04-21] MEDS ORDERED: metroNIDAZOLE 250 MG TABLET ONE ×2 (09:07→16:29)
[2022-04-21] MEDS ORDERED: KCL 10 MEQ IVPB 10 MEQ/100 ML INFUS.BAG IVPB ONE ×3 (09:07→11:30)
[2022-04-21] MEDS ORDERED: ASPIRIN 81 MG CHEWABLE TABLETS ONE (09:07)
[2022-04-21] MEDS ORDERED: FAMOTIDINE 20 MG TABLET ONE (09:07)
[2022-04-21] MEDS: INSULIN SLIDING SCALE (NOVOLOG) 1 VIAL SQ SCH ×3 (09:15→17:34)
[2022-04-21] MEDS: metroNIDAZOLE 250 MG TABLET PO SCH ×2 (09:16→16:32)
[2022-04-21] MEDS: KCL 10 MEQ IVPB 10 MEQ/100 ML INFUS.BAG IVPB SCH ×3 (09:16→11:32)
[2022-04-21] MEDS ORDERED: CEFTRIAXONE 1 GM in DEXTROSE 5%-WATER - 50 ML IVPB SCH (10:00)
[2022-04-21] MEDS ORDERED: FAMOTIDINE 20 MG TABLET PO SCH (10:00)
[2022-04-21] MEDS ORDERED: TRIAMCINOLONE ACET 0.1% OINT 15 GM TUBE TP SCH (10:00)
[2022-04-21] MEDS ORDERED: ASPIRIN 81 MG CHEWABLE TABLETS PO SCH (10:00)
[2022-04-21] MEDS ORDERED: ENOXAPARIN NA (PORCINE) 40 MG/0.4 ML DISP.SYRIN SQ SCH (10:00)
[2022-04-21] MEDS ORDERED: TIMOLOL 0.5% OPHTHALMIC SOL 5 ML BOTTLE OU SCH (10:00)
[2022-04-21] MEDS ORDERED: POTASSIUM CHLORIDE ORAL LIQUID 20 MEQ/15 ML PO ONE (12:00)
[2022-04-21 15:24] LABS: BASO % 0.8 % (0-2.0); EOS % 1.8 % (0-4.5); HEMATOCRIT 37.9 % (32.4-45.2); HEMOGLOBIN 13.1 GM/dL (10.7-15.3); LYMPH % 23.5 % (8-40); MCH 29.7 pg (25.7-33.7); MCHC 34.6 g/dl (32.0-36.0); MEAN CELL VOLUME 86.1 fl (80-96); MEAN PLT VOLUME 8.8 fl (7.5-11.1); MONO % 8.4 % (3.8-10.2); NEUT % 65.5 % (42.8-82.8); PLATELET COUNT 70 10^3/uL (134-434); RDW 14.3 % (11.6-15.6); WHITE BLOOD COUNT 7.9 K/mm3 (4.0-10.0)
[2022-04-21 16:38] LABS: CALCIUM 9.1 mg/dL (8.5-10.1)
[2022-04-21 16:39] LABS: MAGNESIUM 1.6 mg/dL (1.8-2.4)
[2022-04-21 16:43] LABS: BILIRUBIN,TOTAL 1.6 mg/dL (0.2-1); TOT PROT 5.9 g/dl (6.4-8.2)
[2022-04-21] MEDS ORDERED: MAGNESIUM 1GM/D5W - 1 GM/100 ML IVPB IVPB ONE (16:44)
[2022-04-21] MEDS ORDERED: MAGNESIUM CL 64 MG TABLET.SA PO ONE (17:17)
[2022-04-21 17:45] VITALS: BP 142/70; PULSE 79; TEMP 97.9
[2022-04-21] MEDS ORDERED: ATORVASTATIN CA 10 MG TABLET (FP) PO SCH (22:00)
== END 2022-04-21 19:12 | disposition home or self-care (01) | DRG 442 ==
LOC: JER 19:07 → JERBED 04-21 01:45
PROVIDERS: ADMIT Internal Medicine; ATTEND Internal Medicine
DX: K76.82 Hepatic encephalopathy (principal); K76.6 Portal hypertension; E11.9 Type 2 diabetes mellitus without complications; I10 Essential (primary) hypertension; E78.00 Pure hypercholesterolemia, unspecified; K75.81 Nonalcoholic steatohepatitis (NASH); K57.90 Diverticulosis of intestine, part unspecified, without perforation or abscess without bleeding; K74.60 Unspecified cirrhosis of liver; K44.9 Diaphragmatic hernia without obstruction or gangrene; K31.A0 Gastric intestinal metaplasia, unspecified; I25.10 Atherosclerotic heart disease of native coronary artery without angina pectoris; E66.9 Obesity, unspecified; Z68.34 Body mass index [BMI] 34.0-34.9, adult; L40.9 Psoriasis, unspecified; H40.9 Unspecified glaucoma; B35.1 Tinea unguium; K21.9 Gastro-esophageal reflux disease without esophagitis; I48.0 Paroxysmal atrial fibrillation; K52.9 Noninfective gastroenteritis and colitis, unspecified; E87.6 Hypokalemia; E83.42 Hypomagnesemia; D69.6 Thrombocytopenia, unspecified; Z96.611 Presence of right artificial shoulder joint; Z96.612 Presence of left artificial shoulder joint
CPT/HCPCS: 0241U-QW; 36415; 70450-TC; 71045-TC-FY; 74177-TC; 80053; 81003; 82140; 82803; 82962; 83605; 83735; 84484; 85025; 85610; 85730; 86140; 86850; 86900; 86901; 87040; 87086; 93005; 93010; 99285-25; Q9967

== ENCOUNTER 2022-07-28 23:49 | Inpatient (IN) | payer OTHER, MEDICARE ==
[2022-07-29 01:03] LABS: VENOUS BASE EXCESS -4.1 mmol/L (-2-2); VENOUS O2 SATURATION 85.2 % (70-80); VENOUS PCO2 32.8 mmHg (38-52); VENOUS PH 7.396 (7.310-7.410)
[2022-07-29 01:07] LABS: BASO % 0.2 % (0-2.0); EOS % 1.7 % (0-4.5); HEMATOCRIT 39.8 % (32.4-45.2); HEMOGLOBIN 13.7 GM/dL (10.7-15.3); MCH 29.3 pg (25.7-33.7); MCHC 34.5 g/dl (32.0-36.0); MEAN CELL VOLUME 84.9 fl (80-96); MEAN PLT VOLUME 10.1 fl (7.5-11.1); NEUT % 88.1 % (42.8-82.8); PLATELET COUNT 47 10^3/uL (134-434); RBC 4.68 M/mm3 (3.60-5.2); RDW 14.8 % (11.6-15.6)
[2022-07-29 01:20] LABS: INR 1.48 (0.83-1.09); PROTHROMBIN TIME (PATIENT) 17.1 SEC (9.7-13.0)
[2022-07-29 01:22] LABS: ACTIVATED PTT 31.8 SECONDS (25.2-36.5)
[2022-07-29 01:24] LABS: CHLORIDE 105 mmol/L (98-107); POTASSIUM 3.9 mmol/L (3.5-5.1); SODIUM 137 mmol/L (136-145)
[2022-07-29 01:27] LABS: BLOOD UREA NITROGEN 29.5 mg/dL (7-18); CALCIUM 11.6 mg/dL (8.5-10.1)
[2022-07-29 01:28] LABS: ALBUMIN 3.1 g/dl (3.4-5.0); ANION GAP 10 MMOL/L (8-16); CO2 21 mmol/L (21-32); LIPASE 167 U/L (73-393); MAGNESIUM 1.6 mg/dL (1.8-2.4)
[2022-07-29 01:30] LABS: CREATININE 1.5 mg/dL (0.55-1.3); SGPT/ALT 38 U/L (13-61)
[2022-07-29 01:31] LABS: SGOT/AST 63 U/L (15-37)
[2022-07-29] MEDS ORDERED: MAGNESIUM SULF 50% (8.12 MEQ/2 ML-1 GM VIAL) IVPB ONE (01:31)
[2022-07-29 01:32] LABS: BILIRUBIN,TOTAL 3.8 mg/dL (0.2-1)
[2022-07-29 01:33] LABS: ALK PHOS 80 U/L (45-117)
[2022-07-29 01:37] LABS: GLUCOSE,RANDOM 533 mg/dL (74-106); LACTIC ACID 3.4 mmol/L (0.4-2.0)
[2022-07-29] MEDS ORDERED: SODIUM CHLORIDE 0.9% 500 ML INFUS.BAG IV ONE (01:39)
[2022-07-29] MEDS ORDERED: MAGNESIUM SULFATE IN WATER 2 GM/50 ML IVPB IVPB ONE (01:40)
[2022-07-29] MEDS ORDERED: POTASSIUM CHLORIDE ORAL LIQUID 20 MEQ/15 ML PO ONE (01:47)
[2022-07-29] MEDS ORDERED: POTASSIUM CHLORIDE ORAL LIQUID 20 MEQ/15 ML ONE (02:33)
[2022-07-29] MEDS ORDERED: SODIUM CHLORIDE 1,000 ML IV SCH (04:45)
[2022-07-29 05:26] VITALS: BMI 34.0
[2022-07-29] MEDS: INSULIN SLIDING SCALE (NOVOLOG) 1 VIAL SQ SCH ×3 (06:23→16:35)
[2022-07-29] MEDS ORDERED: INSULIN (LEVEMIR) 100 UNITS/ML UNITS SQ SCH (08:00)
[2022-07-29 08:39] LABS: BILIRUBIN,DIRECT 1.8 mg/dL (0.0-0.2)
[2022-07-29] MEDS ORDERED: MAGNESIUM 2GM/50ML STERILE WATER IVPB IVPB ONE (10:00)
[2022-07-29 10:09] LABS: ARTERIAL BLD GAS O2 SATURATION 94.9 % (95-98); ARTERIAL BLOOD GAS BASE EXCESS -4.2 mmol/L (-2-2); ARTERIAL BLOOD GAS PO2 70.8 mmHg (80-100)
[2022-07-29 10:12] LABS: ALLENS TEST POSITIVE
[2022-07-29] MEDS: LACTULOSE 20 GM/30 ML UDC (FOR ORAL USE ONLY) PO SCH ×4 (10:12→23:27)
[2022-07-29] MEDS: INSULIN (LEVEMIR) 100 UNITS/ML UNITS SQ SCH (10:12)
[2022-07-29] MEDS: MAGNESIUM OXIDE 400 MG TABLET (FP) PO SCH ×2 (10:13→23:27)
[2022-07-29] MEDS: FAMOTIDINE 20 MG TABLET PO SCH (10:13)
[2022-07-29] MEDS: TIMOLOL 0.5% OPHTHALMIC SOL 5 ML BOTTLE OU SCH ×2 (10:19→23:27)
[2022-07-29] MEDS: TRIAMCINOLONE ACET 0.1% OINT 15 GM TUBE TP SCH (10:21)
[2022-07-29] MEDS ORDERED: ACETAMINOPHEN 325 MG TABLET (FP) PO PRN (12:19)
[2022-07-29 13:16] LABS: POTASSIUM 3.9 mmol/L (3.5-5.1)
[2022-07-29 13:18] LABS: CALCIUM 10.1 mg/dL (8.5-10.1)
[2022-07-29 13:19] LABS: BLOOD UREA NITROGEN 26.1 mg/dL (7-18); MAGNESIUM 2.4 mg/dL (1.8-2.4)
[2022-07-29 13:21] LABS: BILIRUBIN,DIRECT 1.3 mg/dL (0.0-0.2)
[2022-07-29 13:22] LABS: CREATININE 1.1 mg/dL (0.55-1.3)
[2022-07-29 20:51] LABS: EPI CELLS 18 /uL (0-25.1); HYALINE CASTS 1 /uL (0-3.1); PH,URINE 5.5 (5.0-8.0); URINE APPEARANCE CLEAR; URINE BACTERIA 7 /uL (0-1359); URINE BILIRUBIN NEGATIVE (NEGATIVE); URINE COLOR DK YELLOW; URINE GLUCOSE (UA) 3+ (NEGATIVE); URINE KETONE NEGATIVE (NEGATIVE); URINE LEUK ESTERASE NEGATIVE (NEGATIVE); URINE NITRITE NEGATIVE (NEGATIVE); URINE PROTEIN 1+ (NEGATIVE); URINE RBC 18 /uL (0-23.9); URINE UROBILINOGEN 0.2 mg/dL (0.2-1.0); URINE WBC 36 /uL (0-25.8)
[2022-07-30] MEDS: INSULIN SLIDING SCALE (NOVOLOG) 1 VIAL SQ SCH ×3 (06:50→17:04)
[2022-07-30] MEDS: INSULIN (LEVEMIR) 100 UNITS/ML UNITS SQ SCH ×2 (06:50→10:57)
[2022-07-30 08:46] LABS: BASO % 0.9 % (0-2.0); EOS % 2.6 % (0-4.5); HEMATOCRIT 36.1 % (32.4-45.2); HEMOGLOBIN 12.4 GM/dL (10.7-15.3); MCH 29.3 pg (25.7-33.7); MCHC 34.3 g/dl (32.0-36.0); MEAN CELL VOLUME 85.4 fl (80-96); MEAN PLT VOLUME 10.1 fl (7.5-11.1); MONO % 8.7 % (3.8-10.2); NEUT % 66.8 % (42.8-82.8); RBC 4.23 M/mm3 (3.60-5.2); RDW 15.3 % (11.6-15.6); WHITE BLOOD COUNT 2.4 K/mm3 (4.0-10.0)
[2022-07-30 08:54] LABS: PLATELET COUNT 35 10^3/uL (134-434)
[2022-07-30 09:10] LABS: BLOOD UREA NITROGEN 30.8 mg/dL (7-18); CALCIUM 9.7 mg/dL (8.5-10.1)
[2022-07-30 09:11] LABS: ALBUMIN 2.6 g/dl (3.4-5.0); MAGNESIUM 1.9 mg/dL (1.8-2.4)
[2022-07-30 09:12] LABS: BILIRUBIN,TOTAL 1.8 mg/dL (0.2-1); TOT PROT 5.4 g/dl (6.4-8.2)
[2022-07-30 09:15] LABS: PHOSPHOROUS 2.3 mg/dL (2.5-4.9)
[2022-07-30] MEDS: MAGNESIUM OXIDE 400 MG TABLET (FP) PO SCH ×2 (10:57→22:45)
[2022-07-30] MEDS: LACTULOSE 20 GM/30 ML UDC (FOR ORAL USE ONLY) PO SCH ×4 (10:57→22:45)
[2022-07-30] MEDS: FAMOTIDINE 20 MG TABLET PO SCH (10:57)
[2022-07-30] MEDS: TIMOLOL 0.5% OPHTHALMIC SOL 5 ML BOTTLE OU SCH ×2 (10:58→22:45)
[2022-07-30] MEDS: TRIAMCINOLONE ACET 0.1% OINT 15 GM TUBE TP SCH (10:58)
[2022-07-30] MEDS ORDERED: ALBUTEROL SO4 2.5/IPRATROPIUM 0.5 INH SOL 3 ML VIAL.NEB. NEB ONE (11:15)
[2022-07-30] MEDS ORDERED: INSULIN (LEVEMIR) 100 UNITS/ML UNITS SQ ONE (12:20)
[2022-07-30] MEDS ORDERED: INSULIN (NOVOLOG) ASPART 100 UNITS/ML 10ML VIAL ONE (12:20)
[2022-07-31] MEDS: INSULIN SLIDING SCALE (NOVOLOG) 1 VIAL SQ SCH ×3 (07:07→16:47)
[2022-07-31] MEDS: INSULIN (LEVEMIR) 100 UNITS/ML UNITS SQ SCH ×2 (07:08→09:58)
[2022-07-31 09:04] LABS: HEMATOCRIT 35.8 % (32.4-45.2); HEMOGLOBIN 12.3 GM/dL (10.7-15.3); MCH 28.9 pg (25.7-33.7); MCHC 34.4 g/dl (32.0-36.0); MEAN PLT VOLUME 9.3 fl (7.5-11.1); PLATELET COUNT 43 10^3/uL (134-434); RBC 4.26 M/mm3 (3.60-5.2); RDW 15.1 % (11.6-15.6); WHITE BLOOD COUNT 3.2 K/mm3 (4.0-10.0)
[2022-07-31 09:29] LABS: POTASSIUM 3.6 mmol/L (3.5-5.1)
[2022-07-31 09:35] LABS: ALBUMIN 2.5 g/dl (3.4-5.0); BLOOD UREA NITROGEN 21.9 mg/dL (7-18); MAGNESIUM 1.4 mg/dL (1.8-2.4)
[2022-07-31 09:38] LABS: CREATININE 0.7 mg/dL (0.55-1.3); PHOSPHOROUS 1.9 mg/dL (2.5-4.9)
[2022-07-31 09:39] LABS: BILIRUBIN,TOTAL 1.7 mg/dL (0.2-1); TOT PROT 5.2 g/dl (6.4-8.2)
[2022-07-31] MEDS: FAMOTIDINE 20 MG TABLET PO SCH (09:58)
[2022-07-31] MEDS: MAGNESIUM OXIDE 400 MG TABLET (FP) PO SCH ×2 (09:58→21:56)
[2022-07-31] MEDS: LACTULOSE 20 GM/30 ML UDC (FOR ORAL USE ONLY) PO SCH ×4 (09:58→21:56)
[2022-07-31] MEDS: TRIAMCINOLONE ACET 0.1% OINT 15 GM TUBE TP SCH (10:00)
[2022-07-31] MEDS: TIMOLOL 0.5% OPHTHALMIC SOL 5 ML BOTTLE OU SCH ×2 (10:00→21:56)
[2022-07-31] MEDS ORDERED: INSULIN (LEVEMIR) 100 UNITS/ML UNITS SQ ONE (10:09)
[2022-07-31] MEDS ORDERED: MAGNESIUM 2GM/50ML STERILE WATER IVPB IVPB ONE (11:15)
[2022-07-31] MEDS ORDERED: NAPH,MB-DB/K PH,MBDB POWDER PACKET PO ONE (11:15)
[2022-07-31 11:34] LABS: INR 1.22 (0.83-1.09); PROTHROMBIN TIME (PATIENT) 14.1 SEC (9.7-13.0)
[2022-07-31 11:37] LABS: ACTIVATED PTT 27.9 SECONDS (25.2-36.5)
[2022-07-31] MEDS ORDERED: INSULIN (NOVOLOG) ASPART 100 UNITS/ML 10ML VIAL ONE ×3 (11:54→16:49)
[2022-07-31 14:28] VITALS: RESP 18
[2022-07-31] MEDS ORDERED: FUROSEMIDE 40 MG/4 ML INJECTABLE VIAL IVPUSH ONE (16:30)
[2022-07-31] MEDS ORDERED: FUROSEMIDE 40 MG/4 ML INJECTABLE VIAL ONE (18:40)
[2022-08-01] MEDS ORDERED: INSULIN (NOVOLOG) ASPART 100 UNITS/ML 10ML VIAL ONE (05:59)
[2022-08-01] MEDS: INSULIN (LEVEMIR) 100 UNITS/ML UNITS SQ SCH ×2 (06:02→10:40)
[2022-08-01] MEDS: INSULIN SLIDING SCALE (NOVOLOG) 1 VIAL SQ SCH ×3 (06:03→17:17)
[2022-08-01 08:31] LABS: HEMATOCRIT 37.4 % (32.4-45.2); HEMOGLOBIN 12.7 GM/dL (10.7-15.3); MCH 28.8 pg (25.7-33.7); MCHC 33.8 g/dl (32.0-36.0); MEAN CELL VOLUME 85.2 fl (80-96); MEAN PLT VOLUME 10.4 fl (7.5-11.1); PLATELET COUNT 52 10^3/uL (134-434); RBC 4.39 M/mm3 (3.60-5.2); RDW 14.8 % (11.6-15.6); WHITE BLOOD COUNT 3.7 K/mm3 (4.0-10.0)
[2022-08-01 08:49] LABS: POTASSIUM 3.3 mmol/L (3.5-5.1)
[2022-08-01 08:51] LABS: CALCIUM 8.9 mg/dL (8.5-10.1)
[2022-08-01 08:52] LABS: BLOOD UREA NITROGEN 18.1 mg/dL (7-18); MAGNESIUM 1.5 mg/dL (1.8-2.4)
[2022-08-01 08:55] LABS: CREATININE 0.7 mg/dL (0.55-1.3); PHOSPHOROUS 2.7 mg/dL (2.5-4.9)
[2022-08-01] MEDS ORDERED: POTASSIUM CHLORIDE TABS 20 MEQ TABLET.ER (FP) PO ONE (09:03)
[2022-08-01] MEDS: MAGNESIUM SULF 50% (8.12 MEQ/2 ML-1 GM VIAL) IVPB ONE ×2 (09:48→10:08)
[2022-08-01] MEDS: LACTULOSE 20 GM/30 ML UDC (FOR ORAL USE ONLY) PO SCH ×4 (09:50→21:10)
[2022-08-01] MEDS: MAGNESIUM OXIDE 400 MG TABLET (FP) PO SCH ×2 (09:50→21:10)
[2022-08-01] MEDS: FAMOTIDINE 20 MG TABLET PO SCH (09:50)
[2022-08-01] MEDS ORDERED: MAGNESIUM 2GM/50ML STERILE WATER IVPB IVPB ONE (10:00)
[2022-08-01] MEDS: TIMOLOL 0.5% OPHTHALMIC SOL 5 ML BOTTLE OU SCH ×2 (10:02→21:10)
[2022-08-01] MEDS: TRIAMCINOLONE ACET 0.1% OINT 15 GM TUBE TP SCH (10:02)
[2022-08-01 22:43] VITALS: BP 144/64; PULSE 82; TEMP 98
== END 2022-08-01 23:37 | disposition home or self-care (01) | DRG 433 ==
LOC: JER 23:49 → JERBED 07-29 02:34 → J6S 07-29 04:48
PROVIDERS: ADMIT Internal Medicine; ATTEND Internal Medicine
DX: K74.60 Unspecified cirrhosis of liver (principal); N17.9 Acute kidney failure, unspecified; K76.82 Hepatic encephalopathy; K75.81 Nonalcoholic steatohepatitis (NASH); D69.6 Thrombocytopenia, unspecified; I10 Essential (primary) hypertension; E11.65 Type 2 diabetes mellitus with hyperglycemia; E78.5 Hyperlipidemia, unspecified; E83.52 Hypercalcemia; E86.0 Dehydration; E66.9 Obesity, unspecified; Z68.34 Body mass index [BMI] 34.0-34.9, adult
CPT/HCPCS: 0241U-QW; 36415; 36600; 70450-TC; 71045-TC-FY; 76705-TC; 80048; 80053; 81003; 82010; 82140; 82248; 82607; 82746; 82803; 82962; 83036; 83605; 83690; 83735; 84100; 84443; 84484; 85025; 85027; 85610; 85730; 87086; 93005; 93010; 94010; 94640; 97116-GP; 97162-GP; 99285-25

== ENCOUNTER 2022-11-09 05:29 | Inpatient (IN) | payer OTHER, MEDICARE ==
[2022-11-09] MEDS ORDERED: LACTULOSE 20 GM/30 ML UDC (FOR RECTAL USE ONLY) PR ONE (05:40)
[2022-11-09 05:49] LABS: VENOUS PCO2 29.9 mmHg (38-52); VENOUS PH 7.492 (7.310-7.410)
[2022-11-09] MEDS ORDERED: LACTATED RINGERS SOLUTION 1000 ML INFUS.BAG IV ONE (05:53)
[2022-11-09] MEDS ORDERED: ACETAMINOPHEN 1000 MG/100 ML BAG IVPB ONE (05:53)
[2022-11-09 06:06] LABS: BASO % 0.9 % (0-2.0); EOS % 1.9 % (0-4.5); HEMATOCRIT 37.2 % (32.4-45.2); HEMOGLOBIN 12.8 GM/dL (10.7-15.3); MCH 29.5 pg (25.7-33.7); MCHC 34.5 g/dl (32.0-36.0); MEAN CELL VOLUME 85.6 fl (80-96); MEAN PLT VOLUME 9.2 fl (7.5-11.1); MONO % 7.6 % (3.8-10.2); NEUT % 79.6 % (42.8-82.8); PLATELET COUNT 47 10^3/uL (134-434); RBC 4.35 M/mm3 (3.60-5.2); RDW 15.1 % (11.6-15.6); WHITE BLOOD COUNT 4.5 K/mm3 (4.0-10.0)
[2022-11-09] MEDS ORDERED: CEFTRIAXONE 1 GM in DEXTROSE 5%-WATER - 100 ML IVPB ONE (06:10)
[2022-11-09 06:16] LABS: INR 1.31 (0.83-1.09); PROTHROMBIN TIME (PATIENT) 15.2 SEC (9.7-13.0)
[2022-11-09] MEDS ORDERED: CEFTRIAXONE 1 GM/50 ML BAG ONE (06:16)
[2022-11-09] MEDS ORDERED: ACETAMINOPHEN INJECTION 100 ML IVPB ONE (06:16)
[2022-11-09 06:18] LABS: ACTIVATED PTT 29.7 SECONDS (25.2-36.5)
[2022-11-09 06:21] LABS: CHLORIDE 107 mmol/L (98-107); POTASSIUM 3.2 mmol/L (3.5-5.1); SODIUM 142 mmol/L (136-145)
[2022-11-09 06:23] LABS: CALCIUM 9.6 mg/dL (8.5-10.1)
[2022-11-09 06:24] LABS: ALBUMIN 3.1 g/dl (3.4-5.0); ANION GAP 9 MMOL/L (8-16); CO2 26 mmol/L (21-32)
[2022-11-09 06:25] LABS: BLOOD UREA NITROGEN 16.4 mg/dL (7-18); GLUCOSE,RANDOM 139 mg/dL (74-106)
[2022-11-09 06:27] LABS: CREATININE 0.7 mg/dL (0.55-1.3); SGOT/AST 51 U/L (15-37); SGPT/ALT 35 U/L (13-61)
[2022-11-09 06:29] LABS: CHOLESTEROL 92 mg/dL (50-200)
[2022-11-09 06:30] LABS: LDL CHOLESTEROL (ONLY SJRH) 33 mg/dL (5-100)
[2022-11-09 06:31] LABS: ALK PHOS 96 U/L (45-117); HDL CHOLESTEROL 23 mg/dL (40-60)
[2022-11-09 06:35] LABS: MAGNESIUM 1.3 mg/dL (1.8-2.4)
[2022-11-09 06:39] LABS: LACTIC ACID 2.8 mmol/L (0.4-2.0)
[2022-11-09 06:41] LABS: EPI CELLS 19 /uL (0-25.1); HYALINE CASTS 2 /uL (0-3.1); PH,URINE 6.5 (5.0-8.0); URINE APPEARANCE CLEAR; URINE BACTERIA 4 /uL (0-1359); URINE BILIRUBIN 1+ (NEGATIVE); URINE COLOR DK YELLOW; URINE GLUCOSE (UA) NEGATIVE (NEGATIVE); URINE KETONE TRACE (NEGATIVE); URINE LEUK ESTERASE TRACE (NEGATIVE); URINE NITRITE NEGATIVE (NEGATIVE); URINE PROTEIN 1+ (NEGATIVE); URINE RBC 15 /uL (0-23.9); URINE WBC 27 /uL (0-25.8)
[2022-11-09 06:45] LABS: METHADONE, UR NEGATIVE (NEGATIVE); PHENCYCLIDINE,URINE NEGATIVE (NEGATIVE); URINE AMPHETAMINES NEGATIVE (NEGATIVE); URINE BENZODIAZEPINES NEGATIVE (NEGATIVE)
[2022-11-09 06:46] LABS: OPIATES, URI NEGATIVE (NEGATIVE); URINE BARBITURATES NEGATIVE (NEGATIVE)
[2022-11-09] MEDS ORDERED: MAGNESIUM SULF 50% (8.12 MEQ/2 ML-1 GM VIAL) IVPB ONE (06:57)
[2022-11-09] MEDS ORDERED: AZITHROMYCIN IVPB 500 MG in DEXTROSE 5%-WATER - 250 ML IVPB ONE (06:57)
[2022-11-09] MEDS ORDERED: KCL 10 MEQ IVPB 10 MEQ/100 ML INFUS.BAG IVPB SCH (07:00)
[2022-11-09 07:13] LABS: COCAINE, UR NEGATIVE (NEGATIVE)
[2022-11-09] MEDS ORDERED: AZITHROMYCIN IVPB 500 MG/250 ML BAG IVPB ONE (07:15)
[2022-11-09] MEDS ORDERED: POTASSIUM CHLORIDE TABS 20 MEQ TABLET.ER (FP) PO ONE (12:18)
[2022-11-09 12:38] LABS: LACTIC ACID 3.1 mmol/L (0.4-2.0)
[2022-11-09 12:50] VITALS: BMI 32.7
[2022-11-09] MEDS ORDERED: INSULIN (NOVOLOG) ASPART 100 UNITS/ML 10ML VIAL ONE (17:37)
[2022-11-09] MEDS: INSULIN SLIDING SCALE (NOVOLOG) 1 VIAL SQ SCH (17:39)
[2022-11-09] MEDS: FAMOTIDINE 20 MG TABLET PO SCH (21:57)
[2022-11-09] MEDS: LACTULOSE 20 GM/30 ML UDC (FOR ORAL USE ONLY) PO PRN (21:57)
[2022-11-09] MEDS: ATORVASTATIN CA 10 MG TABLET (FP) PO SCH (21:57)
[2022-11-09] MEDS: HEPARIN NA (PORCINE) 5,000 UNITS/ML 1ML VIAL SQ SCH (21:57)
[2022-11-10] MEDS: INSULIN SLIDING SCALE (NOVOLOG) 1 VIAL SQ SCH ×3 (06:22→17:26)
[2022-11-10 07:26] LABS: POTASSIUM 3.1 mmol/L (3.5-5.1)
[2022-11-10 07:27] LABS: CALCIUM 8.4 mg/dL (8.5-10.1)
[2022-11-10 07:28] LABS: BLOOD UREA NITROGEN 13.5 mg/dL (7-18)
[2022-11-10 07:29] LABS: HEMATOCRIT 33.5 % (32.4-45.2); HEMOGLOBIN 11.6 GM/dL (10.7-15.3); MCH 29.8 pg (25.7-33.7); MCHC 34.7 g/dl (32.0-36.0); MEAN CELL VOLUME 85.8 fl (80-96); PLATELET COUNT 52 10^3/uL (134-434); RBC 3.91 M/mm3 (3.60-5.2); RDW 15.5 % (11.6-15.6); WHITE BLOOD COUNT 4.2 K/mm3 (4.0-10.0)
[2022-11-10 07:32] LABS: CREATININE 0.6 mg/dL (0.55-1.3)
[2022-11-10] MEDS ORDERED: POTASSIUM CHLORIDE ORAL LIQUID 20 MEQ/15 ML PO ONE (09:00)
[2022-11-10 09:10] LABS: ANISOCYTOSIS 2+; MACROCYTOSIS 0; OVALOCYTE 1+
[2022-11-10] MEDS: LACTULOSE 20 GM/30 ML UDC (FOR ORAL USE ONLY) PO PRN ×2 (09:26→15:54)
[2022-11-10] MEDS: KCL 10 MEQ IVPB 10 MEQ/100 ML INFUS.BAG IVPB SCH ×5 (09:27→18:03)
[2022-11-10] MEDS: LOSARTAN POTASSIUM 50 MG TABLET PO SCH (09:27)
[2022-11-10] MEDS: HEPARIN NA (PORCINE) 5,000 UNITS/ML 1ML VIAL SQ SCH ×2 (09:27→21:38)
[2022-11-10] MEDS: FAMOTIDINE 20 MG TABLET PO SCH ×2 (09:27→21:38)
[2022-11-10] MEDS: FENOFIBRIC ACID 135 MG CAP PO SCH (09:28)
[2022-11-10 10:18] LABS: MAGNESIUM 1.6 mg/dL (1.8-2.4)
[2022-11-10] MEDS ORDERED: INSULIN (NOVOLOG) ASPART 100 UNITS/ML 10ML VIAL ONE ×2 (11:44→17:25)
[2022-11-10] MEDS ORDERED: MAGNESIUM 1GM/D5W 100ML - 100 ML IVPB IVPB ONE (12:15)
[2022-11-10] MEDS ORDERED: FUROSEMIDE 40 MG/4 ML INJECTABLE VIAL IVPUSH ONE (15:12)
[2022-11-10] MEDS: ALBUTEROL SO4 2.5/IPRATROPIUM 0.5 INH SOL 3 ML VIAL.NEB. NEB PRN (15:39)
[2022-11-10 16:09] LABS: N-TERMINAL BNP 1583.6 pg/ml (5-450)
[2022-11-10] MEDS: ATORVASTATIN CA 10 MG TABLET (FP) PO SCH (21:38)
[2022-11-10] MEDS ORDERED: ACETAMINOPHEN 1000 MG/100 ML BAG IVPB ONE (22:26)
[2022-11-11] MEDS: INSULIN SLIDING SCALE (NOVOLOG) 1 VIAL SQ SCH ×4 (06:51→21:21)
[2022-11-11 07:34] LABS: HEMATOCRIT 35.3 % (32.4-45.2); HEMOGLOBIN 12.1 GM/dL (10.7-15.3); MCH 29.4 pg (25.7-33.7); MCHC 34.3 g/dl (32.0-36.0); MEAN CELL VOLUME 85.7 fl (80-96); MEAN PLT VOLUME 8.7 fl (7.5-11.1); PLATELET COUNT 56 10^3/uL (134-434); RBC 4.12 M/mm3 (3.60-5.2); RDW 15.3 % (11.6-15.6); WHITE BLOOD COUNT 4.9 K/mm3 (4.0-10.0)
[2022-11-11 07:54] LABS: POTASSIUM 3.3 mmol/L (3.5-5.1)
[2022-11-11 07:59] LABS: ALBUMIN 2.7 g/dl (3.4-5.0); BLOOD UREA NITROGEN 15.3 mg/dL (7-18); CALCIUM 8.6 mg/dL (8.5-10.1); MAGNESIUM 1.6 mg/dL (1.8-2.4)
[2022-11-11 08:01] LABS: BILIRUBIN,DIRECT 1.1 mg/dL (0.0-0.2)
[2022-11-11 08:02] LABS: CREATININE 0.6 mg/dL (0.55-1.3)
[2022-11-11 08:03] LABS: TOT PROT 5.5 g/dl (6.4-8.2)
[2022-11-11 08:55] LABS: ANISOCYTOSIS 0; HELMET CELLS 0; HOWELL-JOLLY BODIES 0; MACROCYTOSIS 0; OVALOCYTE 0; ROULEAU 0; SICKELED CELLS 0; TARGET CELLS 0; TEAR DROP CELLS 0; TOXIC GRANULATION 0
[2022-11-11] MEDS ORDERED: POTASSIUM CHLORIDE TABS 20 MEQ TABLET.ER (FP) PO ONE (09:13)
[2022-11-11] MEDS ORDERED: MAGNESIUM 1GM/D5W 100ML - 100 ML IVPB IVPB ONE (09:14)
[2022-11-11] MEDS ORDERED: TAMSULOSIN HCL 0.4 MG CAP PO ONE (09:51)
[2022-11-11] MEDS ORDERED: LACTATED RINGERS SOLUTION 1,000 ML/1,000 ML INFUS.BAG IV SCH (10:00)
[2022-11-11] MEDS: HEPARIN NA (PORCINE) 5,000 UNITS/ML 1ML VIAL SQ SCH ×2 (10:21→21:19)
[2022-11-11] MEDS: FAMOTIDINE 20 MG TABLET PO SCH ×2 (10:21→21:19)
[2022-11-11] MEDS: FENOFIBRIC ACID 135 MG CAP PO SCH (10:21)
[2022-11-11] MEDS: LOSARTAN POTASSIUM 50 MG TABLET PO SCH (10:21)
[2022-11-11] MEDS ORDERED: glipiZIDE 5 MG TABLET (FP) ONE (12:06)
[2022-11-11] MEDS: ASPIRIN 81 MG CHEWABLE TABLETS PO SCH (12:20)
[2022-11-11] MEDS: LACTULOSE 20 GM/30 ML UDC (FOR ORAL USE ONLY) PO SCH ×2 (14:35→21:19)
[2022-11-11] MEDS: glipiZIDE 10 MG TABLET (FP) PO SCH (14:36)
[2022-11-11] MEDS ORDERED: INSULIN (NOVOLOG) ASPART 100 UNITS/ML 10ML VIAL ONE (16:55)
[2022-11-11] MEDS: ALBUTEROL SO4 2.5/IPRATROPIUM 0.5 INH SOL 3 ML VIAL.NEB. NEB PRN (18:10)
[2022-11-11] MEDS: ATORVASTATIN CA 40 MG TABLET (FP) PO SCH (21:19)
[2022-11-11] MEDS ORDERED: ATORVASTATIN CA 40 MG TABLET (FP) PO SCH (22:00)
[2022-11-12] MEDS ORDERED: glipiZIDE 5 MG TABLET (FP) ONE (04:48)
[2022-11-12] MEDS: INSULIN SLIDING SCALE (NOVOLOG) 1 VIAL SQ SCH ×4 (06:28→21:57)
[2022-11-12] MEDS: LACTULOSE 20 GM/30 ML UDC (FOR ORAL USE ONLY) PO SCH ×3 (06:36→21:50)
[2022-11-12] MEDS: glipiZIDE 10 MG TABLET (FP) PO SCH (06:37)
[2022-11-12] MEDS: metFORMIN HCL 500 MG TABLET (FP) PO SCH (06:37)
[2022-11-12] MEDS ORDERED: glipiZIDE 10 MG TABLET (FP) PO SCH (07:00)
[2022-11-12] MEDS: TAMSULOSIN HCL 0.4 MG CAP PO SCH (07:51)
[2022-11-12 08:56] LABS: HEMOGLOBIN 10.8 GM/dL (10.7-15.3); MCH 29.8 pg (25.7-33.7); MCHC 34.8 g/dl (32.0-36.0); MEAN CELL VOLUME 85.7 fl (80-96); MEAN PLT VOLUME 9.2 fl (7.5-11.1); PLATELET COUNT 54 10^3/uL (134-434); RBC 3.62 M/mm3 (3.60-5.2); RDW 15.1 % (11.6-15.6); WHITE BLOOD COUNT 3.6 K/mm3 (4.0-10.0)
[2022-11-12 09:01] LABS: INR 1.33 (0.83-1.09); PROTHROMBIN TIME (PATIENT) 15.4 SEC (9.7-13.0)
[2022-11-12 09:22] LABS: POTASSIUM 3.2 mmol/L (3.5-5.1)
[2022-11-12 09:24] LABS: ANISOCYTOSIS 0; HELMET CELLS 0; HOWELL-JOLLY BODIES 0; MACROCYTOSIS 0; OVALOCYTE 0; ROULEAU 0; SICKELED CELLS 0; TARGET CELLS 0; TEAR DROP CELLS 0; TOXIC GRANULATION 0
[2022-11-12 09:29] LABS: CALCIUM 8.1 mg/dL (8.5-10.1)
[2022-11-12] MEDS: ASPIRIN 81 MG CHEWABLE TABLETS PO SCH (09:29)
[2022-11-12] MEDS: HEPARIN NA (PORCINE) 5,000 UNITS/ML 1ML VIAL SQ SCH ×2 (09:29→21:50)
[2022-11-12] MEDS: LOSARTAN POTASSIUM 50 MG TABLET PO SCH (09:29)
[2022-11-12] MEDS: FAMOTIDINE 20 MG TABLET PO SCH ×2 (09:29→21:50)
[2022-11-12 09:31] LABS: ALBUMIN 2.5 g/dl (3.4-5.0); CREATININE 0.5 mg/dL (0.55-1.3); MAGNESIUM 1.4 mg/dL (1.8-2.4)
[2022-11-12] MEDS: FENOFIBRIC ACID 135 MG CAP PO SCH (09:32)
[2022-11-12 09:36] LABS: BILIRUBIN,TOTAL 2.2 mg/dL (0.2-1)
[2022-11-12] MEDS: ALBUTEROL SO4 2.5/IPRATROPIUM 0.5 INH SOL 3 ML VIAL.NEB. NEB PRN ×2 (11:35→19:00)
[2022-11-12] MEDS: KCL 10 MEQ IVPB 10 MEQ/100 ML INFUS.BAG IVPB SCH ×2 (12:37→13:47)
[2022-11-12] MEDS ORDERED: FUROSEMIDE 40 MG/4 ML INJECTABLE VIAL IVPUSH ONE (12:45)
[2022-11-12] MEDS ORDERED: ALBUTEROL SO4 0.083% IH SOL 2.5 MG/3 ML VIAL.NEB. NEB PRN (12:46)
[2022-11-12 14:16] LABS: N-TERMINAL BNP 1157.4 pg/ml (5-450)
[2022-11-12 19:21] VITALS: RESP 20
[2022-11-12] MEDS: ATORVASTATIN CA 40 MG TABLET (FP) PO SCH (21:50)
[2022-11-13] MEDS ORDERED: glipiZIDE 5 MG TABLET (FP) ONE (04:29)
[2022-11-13] MEDS: INSULIN SLIDING SCALE (NOVOLOG) 1 VIAL SQ SCH ×3 (06:31→16:47)
[2022-11-13] MEDS: glipiZIDE 10 MG TABLET (FP) PO SCH (06:42)
[2022-11-13] MEDS: LACTULOSE 20 GM/30 ML UDC (FOR ORAL USE ONLY) PO SCH ×2 (06:42→14:07)
[2022-11-13] MEDS: metFORMIN HCL 500 MG TABLET (FP) PO SCH (06:42)
[2022-11-13] MEDS ORDERED: POTASSIUM CHLORIDE ORAL LIQUID 20 MEQ/15 ML PO ONE (08:30)
[2022-11-13] MEDS ORDERED: MAGNESIUM SULF 50% (8.12 MEQ/2 ML-1 GM VIAL) IVPB ONE ×3 (08:30→14:57)
[2022-11-13] MEDS: TAMSULOSIN HCL 0.4 MG CAP PO SCH (08:54)
[2022-11-13] MEDS ORDERED: amLODIPine BESYLATE 5 MG TABLET (FP) PO SCH (10:00)
[2022-11-13] MEDS: ASPIRIN 81 MG CHEWABLE TABLETS PO SCH (10:48)
[2022-11-13] MEDS: HEPARIN NA (PORCINE) 5,000 UNITS/ML 1ML VIAL SQ SCH (10:48)
[2022-11-13] MEDS: FAMOTIDINE 20 MG TABLET PO SCH (10:48)
[2022-11-13] MEDS: LOSARTAN POTASSIUM 50 MG TABLET PO SCH (10:48)
[2022-11-13] MEDS: FENOFIBRIC ACID 135 MG CAP PO SCH (10:50)
[2022-11-13] MEDS ORDERED: guaiFENesin/CODEINE 10 ML UNIT-DOSE CUPS PO PRN (11:32)
[2022-11-13] MEDS ORDERED: guaiFENesin/CODEINE 5 ML UNIT-DOSE CUPS PO PRN (13:52)
[2022-11-13] MEDS ORDERED: POTASSIUM CHLORIDE TABS 20 MEQ TABLET.ER (FP) PO SCH ×2 (15:00→16:45)
[2022-11-13 18:05] VITALS: BP 147/75; PULSE 75; TEMP 98.7
[2022-11-13] MEDS ORDERED: INSULIN (NOVOLOG) ASPART 100 UNITS/ML 10ML VIAL ONE (18:05)
== END 2022-11-13 19:25 | disposition home or self-care (01) | DRG 442 ==
LOC: JER 05:29 → JERBED 06:53 → J4W 12:32
PROVIDERS: ADMIT Internal Medicine; ATTEND Internal Medicine
DX: K75.81 Nonalcoholic steatohepatitis (NASH) (principal); E72.20 Disorder of urea cycle metabolism, unspecified; J44.0 Chronic obstructive pulmonary disease with (acute) lower respiratory infection; K74.60 Unspecified cirrhosis of liver; K76.82 Hepatic encephalopathy; J44.9 Chronic obstructive pulmonary disease, unspecified; D69.59 Other secondary thrombocytopenia; E11.39 Type 2 diabetes mellitus with other diabetic ophthalmic complication; E11.65 Type 2 diabetes mellitus with hyperglycemia; I25.10 Atherosclerotic heart disease of native coronary artery without angina pectoris; R33.9 Retention of urine, unspecified; E78.5 Hyperlipidemia, unspecified; K72.90 Hepatic failure, unspecified without coma; E87.6 Hypokalemia; E83.42 Hypomagnesemia; I27.20 Pulmonary hypertension, unspecified; I10 Essential (primary) hypertension; K21.9 Gastro-esophageal reflux disease without esophagitis; E66.9 Obesity, unspecified; Z68.32 Body mass index [BMI] 32.0-32.9, adult; K44.9 Diaphragmatic hernia without obstruction or gangrene
CPT/HCPCS: 0241U-QW; 36415; 70450-TC; 70496-TC; 70498-TC; 71045-TC-FY; 71275-TC; 76705-TC; 80048; 80053; 80061; 80307; 81003; 82140; 82248; 82550; 82803; 82962; 83036; 83605; 83735; 83880; 84100; 84484; 85025; 85610; 85730; 86140; 87040; 93005; 93010; 93306-TC; 94640; 97116-GP; 97162-GP; 99285-25; J1644; Q9967

== ENCOUNTER 2024-10-09 17:05 | Inpatient (IN) | payer OTHER, MEDICARE ==
[2024-10-09 18:11] LABS: BG HCT 37.0 % (32.4-45.2); VENOUS BASE EXCESS -5.0 mmol/L (-2-2); VENOUS O2 SATURATION 75.3 % (70-80); VENOUS PCO2 29.0 mmHg (38-52); VENOUS PH 7.417 (7.310-7.410)
[2024-10-09 18:49] LABS: EPI CELLS 1 /uL (0-25.1); HYALINE CASTS 0 /uL (0-3.1); URINE APPEARANCE CLEAR; URINE BACTERIA 6275 /uL (0-1359); URINE BILIRUBIN NEGATIVE (NEGATIVE); URINE COLOR YELLOW; URINE GLUCOSE (UA) 2+ (NEGATIVE); URINE KETONE NEGATIVE (NEGATIVE); URINE LEUK ESTERASE 1+ (NEGATIVE); URINE NITRITE NEGATIVE (NEGATIVE); URINE PROTEIN NEGATIVE (NEGATIVE); URINE RBC 254 /uL (0-23.9); URINE UROBILINOGEN 0.2 mg/dL (0.2-1.0); URINE WBC 338 /uL (0-25.8)
[2024-10-09 18:59] LABS: ABSOLUTE IMMATURE GRANULOCYTES 0.02 x10^3/uL (0.0-0.031); BASOPHILS # 0.05 x10^3/uL (0.01-0.08)
[2024-10-09 19:02] LABS: EOSINOPHIL % 1.3 % (0.7-5.8); EOSINOPHILS # 0.10 x10^3/uL (0.04-0.36); IMMATURE PLATELET FRACTION # 2.30 x10^3/uL; MCHC 31.7 g/dl (32.2-35.5); MEAN CELL VOLUME 80.4 fl (79.4-94.8); MONOCYTE # 0.67 x10^3/uL (0.24-0.86); MONOCYTE % 8.9 % (4.7-12.5); RDW 17.7 % (12.4-16.6)
[2024-10-09] MEDS ORDERED: LACTULOSE 20 GM/30 ML UDC (FOR ORAL USE ONLY) ONE (19:03)
[2024-10-09] MEDS: LACTULOSE 20 GM/30 ML UDC (FOR ORAL USE ONLY) PO ONE ×2 (19:06→23:37)
[2024-10-09 19:09] LABS: GLUCOSE,RANDOM 216.0 mg/dL (74-106); TOT PROT 6.0 g/dl (6.4-8.2)
[2024-10-09 19:10] LABS: CO2 15.0 mmol/L (21-32)
[2024-10-09 19:12] LABS: ALK PHOS 69.0 U/L (40-150)
[2024-10-09 19:15] LABS: CREATININE 0.6 mg/dL (0.55-1.3); SGOT/AST 40.0 U/L (5-34); SGPT/ALT 24.0 U/L (0-55)
[2024-10-09] MEDS ORDERED: CEFTRIAXONE 1 GM/50 ML BAG ONE (19:30)
[2024-10-09] MEDS: CEFTRIAXONE 1 GM in DEXTROSE 5%-WATER - 100 ML IVPB ONE (19:35)
[2024-10-09] MEDS ORDERED: MAGNESIUM SULFATE IN WATER 2 GM/50 ML IVPB IVPB ONE (19:44)
[2024-10-09] MEDS: MAGNESIUM SULFATE IN WATER 2 GM/50 ML IVPB IVPB ONE (20:22)
[2024-10-09] MEDS: LACTATED RINGERS SOLUTION 1000 ML INFUS.BAG IV ONE (20:23)
[2024-10-09 21:49] LABS: COCAINE, UR NEGATIVE (NEGATIVE)
[2024-10-09 21:50] LABS: OPIATES, URI NEGATIVE (NEGATIVE); PHENCYCLIDINE,URINE NEGATIVE (NEGATIVE); URINE BARBITURATES NEGATIVE (NEGATIVE); URINE BENZODIAZEPINES NEGATIVE (NEGATIVE)
[2024-10-09 21:51] LABS: METHADONE, UR NEGATIVE (NEGATIVE)
[2024-10-09] MEDS: RIFAXIMIN 550 MG TABLET PO SCH (23:37)
[2024-10-10] MEDS: LACTULOSE 20 GM/30 ML UDC (FOR RECTAL USE ONLY) PR ONE (00:10)
[2024-10-10 01:14] LABS: URINE AMPHETAMINES NEGATIVE (NEGATIVE)
[2024-10-10 01:37] VITALS: BMI 31.4
[2024-10-10] MEDS: LACTULOSE 20 GM/30 ML UDC (FOR ORAL USE ONLY) PO SCH ×2 (02:22→11:24)
[2024-10-10] MEDS ORDERED: LACTULOSE 20 GM/30 ML UDC (FOR ORAL USE ONLY) PO SCH (03:00)
[2024-10-10 08:06] LABS: ABSOLUTE IMMATURE GRANULOCYTES 0.04 x10^3/uL (0.0-0.031); BASOPHILS # 0.05 x10^3/uL (0.01-0.08); EOSINOPHIL % 0.7 % (0.7-5.8); EOSINOPHILS # 0.06 x10^3/uL (0.04-0.36); IMMATURE PLATELET FRACTION # 2.40 x10^3/uL; MCHC 30.9 g/dl (32.2-35.5); MEAN CELL VOLUME 80.8 fl (79.4-94.8); MONOCYTE # 0.66 x10^3/uL (0.24-0.86); MONOCYTE % 8.1 % (4.7-12.5); RDW 18.4 % (12.4-16.6)
[2024-10-10 08:08] LABS: LACTIC ACID 2.3 mmol/L (0.4-2.0)
[2024-10-10 08:10] LABS: GLUCOSE,RANDOM 169.0 mg/dL (74-106); TOT PROT 6.2 g/dl (6.4-8.2)
[2024-10-10 08:11] LABS: CO2 20.0 mmol/L (21-32)
[2024-10-10 08:13] LABS: ALK PHOS 82.0 U/L (40-150)
[2024-10-10 08:15] LABS: INR 1.26 (0.83-1.09); PROTHROMBIN TIME (PATIENT) 13.7 SEC (9.7-13.0); SGOT/AST 37.0 U/L (5-34); SGPT/ALT 24.0 U/L (0-55)
[2024-10-10 08:16] LABS: CREATININE 0.57 mg/dL (0.55-1.3)
[2024-10-10 09:02] LABS: LACTIC ACID 2.1 mmol/L (0.4-2.0)
[2024-10-10] MEDS: FAMOTIDINE 20 MG TABLET PO SCH (10:55)
[2024-10-10] MEDS: amLODIPine BESYLATE 5 MG TABLET (FP) PO SCH (11:21)
[2024-10-10] MEDS: MAGNESIUM OXIDE 400 MG TABLET (FP) PO SCH (11:21)
[2024-10-10] MEDS: LOSARTAN POTASSIUM 50 MG TABLET PO SCH (11:22)
[2024-10-10] MEDS: CEFTRIAXONE 1 GM in DEXTROSE 5%-WATER - 50 ML IVPB SCH (11:22)
[2024-10-10] MEDS: SPIRONOLACTONE 25 MG TABLET PO SCH (11:22)
[2024-10-10] MEDS: SODIUM CHLORIDE 0.9% 500 ML INFUS.BAG IV ONE (11:39)
[2024-10-10] MEDS ORDERED: COLCHICINE 0.6 MG CAPSULE PO PRN (11:58)
[2024-10-10] MEDS: TRIAMCINOLONE 0.1% TP SCH (14:50)
[2024-10-10] MEDS ORDERED: TRIAMCINOLONE ACET 0.1% CREAM 15 GM TUBE TP SCH (16:53)
[2024-10-10] MEDS: TRIAMCINOLONE ACET 0.1% OINT 15 GM TUBE TP SCH (18:06)
[2024-10-10] MEDS: ATORVASTATIN CA 10 MG TABLET (FP) PO SCH (21:58)
[2024-10-10] MEDS: INSULIN ASPART SLIDING SCALE (NOVOLOG) 1 VIAL SQ SCH (22:07)
[2024-10-11] MEDS: LACTULOSE 20 GM/30 ML UDC (FOR ORAL USE ONLY) PO SCH (06:08)
[2024-10-11 07:03] LABS: IMMATURE PLATELET FRACTION # 2.50 x10^3/uL; MCHC 31.0 g/dl (32.2-35.5); MEAN CELL VOLUME 81.4 fl (79.4-94.8); RDW 18.2 % (12.4-16.6)
[2024-10-11 08:21] LABS: GLUCOSE,RANDOM 149.0 mg/dL (74-106)
[2024-10-11 08:22] LABS: TOT PROT 5.2 g/dl (6.4-8.2)
[2024-10-11 08:23] LABS: CO2 19.0 mmol/L (21-32)
[2024-10-11 08:25] LABS: ALK PHOS 68.0 U/L (40-150)
[2024-10-11 08:27] LABS: SGPT/ALT 16.0 U/L (0-55)
[2024-10-11 08:28] LABS: CREATININE 0.65 mg/dL (0.55-1.3)
[2024-10-11] MEDS: COLCHICINE 0.6 MG TAB PO SCH (09:06)
[2024-10-11] MEDS: TRIAMCINOLONE ACET 0.1% OINT 15 GM TUBE TP SCH (09:11)
[2024-10-11] MEDS: POTASSIUM CHLORIDE TABS 20 MEQ TABLET.ER (FP) PO ONE (09:22)
[2024-10-11 10:00] LABS: SGOT/AST 31.0 U/L (5-34)
[2024-10-11] MEDS ORDERED: COLCHICINE 0.6 MG CAPSULE PO SCH (10:00)
[2024-10-11] MEDS: MAGNESIUM SULF 50% (8.12 MEQ/2 ML-1 GM VIAL) IVPB ONE (10:25)
[2024-10-11 14:00] VITALS: BP 126/76; PULSE 83; RESP 17; TEMP 97.5
[2024-10-12] MEDS ORDERED: CEFPODOXIME PROXETIL 100 MG TABLET PO SCH (10:00)
== END 2024-10-11 13:55 | disposition home or self-care (01) | DRG 442 ==
LOC: JER 17:05 → JERBED 20:09 → OBSVTOIN 21:17 → J4W 22:12
PROVIDERS: ADMIT Internal Medicine; ATTEND Student in an Organized Health Care Education/Training Program
DX: K76.82 Hepatic encephalopathy (principal); E72.20 Disorder of urea cycle metabolism, unspecified; N39.0 Urinary tract infection, site not specified; E87.1 Hypo-osmolality and hyponatremia; E87.20 Acidosis, unspecified; E11.9 Type 2 diabetes mellitus without complications; K74.69 Other cirrhosis of liver; I10 Essential (primary) hypertension; I27.20 Pulmonary hypertension, unspecified; K75.81 Nonalcoholic steatohepatitis (NASH); D69.6 Thrombocytopenia, unspecified; D50.9 Iron deficiency anemia, unspecified; H40.9 Unspecified glaucoma; E78.5 Hyperlipidemia, unspecified; L40.9 Psoriasis, unspecified; R74.01 Elevation of levels of liver transaminase levels; E80.6 Other disorders of bilirubin metabolism; E83.42 Hypomagnesemia
CPT/HCPCS: 36415; 70450-TC; 71045-TC-FY; 77063-TC; 77067-TC; 80053; 80307; 81003; 82140; 82803; 82962; 83036; 83605; 83735; 84100; 84484; 85025; 85027; 85610; 87086; 93005; 93010; 99285-25; G0378